=== PATIENT | female | born 1965 | race Caucasian/White ===

== ENCOUNTER 2018-09-13 08:35 | Emergency (ER) | payer SELFPAY ==
[~2018-09-13] VITALS: Ht 160 cm; Wt 96.4 kg
[2018-09-13] MEDS ORDERED: SYNT100T PO (08:43)
[2018-09-13] MEDS ORDERED: PROZ10CA7 PO (08:43)
[2018-09-13] MEDS ORDERED: LOVA20TA2 PO (08:43)
[2018-09-13] MEDS ORDERED: LISI10TA4 PO (08:43)
[2018-09-13] MEDS ORDERED: NS 500 ML IV ONE (09:15)
[2018-09-13] MEDS ORDERED: KETOROLAC 30 MG/ML VIAL (J1885) IV ONE (09:15)
[2018-09-13 09:28] LABS: BASO # 0.1 10^3/uL (0.0-0.2); BASO % 0.7 % (0.0-1.0); EOS # 0.1 10^3/uL (0.0-0.50); HEMATOCRIT 44.5 % (36.0-47.0); HEMOGLOBIN 14.8 g/dl (12.0-15.5); LYMPH # 1.7 10^3/uL (1.5-4.5); LYMPH % 20.2 % (24.0-44.0); MEAN CORPUSCULAR HEMOGLOBIN 29.1 pg (27.0-33.0); MEAN CORPUSCULAR HGB CONC 33.3 g/dl (32.0-36.5); MEAN CORPUSCULAR VOLUME 87.4 fl (80.0-96.0); MONO # 0.6 10^3/uL (0.0-0.8); MONO % 6.8 % (0.0-5.0); NEUTROPHILS % 70.8 % (36.0-66.0); PLATELET COUNT, AUTOMATED 277 10^3/uL (150-450); RED BLOOD COUNT 5.09 10^6/uL (4.00-5.40); WHITE BLOOD COUNT 8.4 10^3/uL (4.0-10.0)
--- NOTE | 2018-09-13 09:58 | REP ---
CT ABDOMEN AND PELVIS WITHOUT IV OR ORAL CONTRAST: HISTORY: Right flank pain. Rule out stone. Comparison CT study December 09, 2013. CT FINDINGS: Preliminary digital hand binder cutter radiograph demonstrates an unremarkable bowel gas pattern. The lung bases are clear on axial CT images. The liver and the spleen are normal in size homogeneous in texture. No focal hepatic lesion is seen. No adrenal lesion is observed on either side. The gallbladder and the pancreas are unremarkable. There is an accessory splenule at the tip of the pancreas. There are stable lymph nodes in the portacaval region of the upper abdomen unchanged. There is a cyst in the lower pole of the left kidney measuring 5.2 cm in greatest diameter. This is not new although it has enlarged in the interval since the prior study when it measured 3.6 cm. There is an intrarenal calculus 2-3 mm in diameter in the upper pole left kidney. No left ureteral stone is seen. There are multiple intrarenal calculi in the right kidney collecting system, the largest of which measures 4 mm in diameter. There are seven or eight right renal calculi seen. There is mild right-sided hydronephrosis. Right hydroureter is seen proximally. No ureteral calculus is seen. The distal right ureter is not dilated. No bladder calculus is visible. The uterus is surgically absent. There is left colonic diverticulosis without CT evidence of diverticulitis. There are scattered proximal colonic diverticula as well. The appendix is surgically absent. Urinary bladder is unremarkable. There is a small suprapubic ventral hernia transmitting abdominal fat. No significant bony abnormality. IMPRESSION: 1. Bilateral intrarenal nephrolithiasis, right more numerous than left. 2. Mild right-sided hydronephrosis. No ureteral calculus or other obstructive lesion seen. 3. 5.2 cm cyst lower pole left kidney. 4. Left and right colonic diverticulosis. 5. Post hysterectomy and appendectomy. Electronically Signed by Nixon Crawford MD 09/13/2018 11:13 A
[2018-09-13 11:24] LABS: ALBUMIN 3.6 GM/DL (3.2-5.2); ALT/SGPT 30 U/L (12-78); BILIRUBIN,DIRECT < 0.1 MG/DL (0.0-0.2); BILIRUBIN,TOTAL 0.5 MG/DL (0.2-1.0); BLOOD UREA NITROGEN 14 MG/DL (7-18); CALCIUM LEVEL 9.5 MG/DL (8.5-10.1); CARBON DIOXIDE LEVEL 20 MEQ/L (21-32); CHLORIDE LEVEL 105 MEQ/L (98-107); CREATININE FOR GFR 0.75 MG/DL (0.55-1.30); GLOMERULAR FILTRATION RATE > 60.0 (>51); GLUCOSE, FASTING 120 MG/DL (70-100); SODIUM LEVEL 137 MEQ/L (136-145); TOTAL PROTEIN 7.6 GM/DL (6.4-8.2)
[2018-09-13] MEDS ORDERED: KETO10TAB PO (12:08)
[2018-09-13] MEDS ORDERED: MACR100C43 PO (12:08)
[2018-09-13 12:14] VITALS: BP 120/76
== END 2018-09-13 12:16 | disposition home or self-care (01) ==
LOC: M ED 08:35
DX: N30.00 Acute cystitis without hematuria (principal); N20.0 Calculus of kidney; Z87.442 Personal history of urinary calculi; N13.30 Unspecified hydronephrosis; Z72.0 Tobacco use; Z79.899 Other long term (current) drug therapy; Z88.1 Allergy status to other antibiotic agents; Z88.2 Allergy status to sulfonamides
CPT/HCPCS: 36415; 74176; 80048; 80076; 81001; 85025; 96361; 96374; 99284; J1885

== ENCOUNTER 2020-01-07 17:37 | Emergency (ER) | payer OTHER, SELFPAY ==
[~2020-01-07] VITALS: Ht 160 cm; Wt 94.7 kg
[~2020-01-07 17:37] MED LIST: KETO10TAB PO; LISI10TA4 PO; LOVA20TA2 PO; MACR100C43 PO; PROZ10CA7 PO; SYNT100T PO
[2020-01-07] MEDS ORDERED: ONDA4TAB6 PO (19:51)
[2020-01-07] MEDS ORDERED: ONDANSETRON 4 MG ORAL DISINTEGRATING TAB PO ONE (20:00)
[2020-01-07] MEDS ORDERED: IBUPROFEN 800 MG TAB PO ONE (20:00)
[2020-01-07 20:25] VITALS: BP 129/73
== END 2020-01-07 20:30 | disposition home or self-care (01) ==
LOC: M ED 17:37
DX: R11.2 Nausea with vomiting, unspecified (principal); R19.7 Diarrhea, unspecified; E03.9 Hypothyroidism, unspecified; I10 Essential (primary) hypertension; F17.200 Nicotine dependence, unspecified, uncomplicated; Z79.899 Other long term (current) drug therapy; Z88.8 Allergy status to other drugs, medicaments and biological substances
CPT/HCPCS: 87486; 87581; 87633; 87798; 99283; Q0162

== ENCOUNTER → 2020-06-07 | Outpatient (CLI) | payer OTHER ==
[~2020-06-07] MED LIST changes: +ONDA4TAB6 PO
[2020-06-07 17:11] LABS: FREE T4 1.22 NG/DL (0.76-1.46); THYROID STIMULATING HORMONE 3.48 uIU/ML (0.358-3.740)
== END ==
LOC: M LAB 14:48
PROVIDERS: ATTEND Internal Medicine Gastroenterology
DX: K62.5 Hemorrhage of anus and rectum (principal)

== ENCOUNTER → 2020-06-08 | Outpatient (REF) | payer OTHER | LOC: M LAB REF 09:42 | PROVIDERS: ATTEND Internal Medicine Gastroenterology | DX: Z53.9 Procedure and treatment not carried out, unspecified reason (principal); K62.5 Hemorrhage of anus and rectum ==

== ENCOUNTER → 2020-06-12 | Outpatient (CLI) | payer OTHER ==
[~2020-06-12] MED LIST changes: +E-Z-PAQUE 96% w/w SUSP 176GM BTL As Ordered ONE
--- NOTE | 2020-06-12 21:04 | REP ---
INDICATION: DIARRHEA. COMPARISON: None. TECHNIQUE: The procedure was performed under the direct supervision of Dr. Crawford. The images were reviewed with Dr. Crawford. Liquid barium was administered and the barium column was followed through the small bowel to the level of the terminal ileum. FINDINGS: The mohs surgeon film shows no organomegaly or pathological masses. The intestinal gas pattern is nonspecific. Small bowel transit time is approximately 30 minutes. During fluoroscopy gentle palpation shows all loops are freely movable and pliable. There are no fixed or angulated loops. The small bowel mucosal pattern is normal in course and caliber. There is no transition to suggest a partial small bowel obstruction. Spot filming of the terminal ileum shows it to be unremarkable. 1 minute of fluoro time was utilized for this procedure. IMPRESSION: Small bowel follow-through examination within normal limits. <Electronically signed by Estevan Frank > 06/12/20 1712 <Electronically signed by Tyrone Crawford > 06/12/20 [id number]
== END ==
LOC: M RAD 08:41
PROVIDERS: ATTEND Internal Medicine Gastroenterology
DX: R19.7 Diarrhea, unspecified (principal)

== ENCOUNTER 2020-07-17 08:10 | Emergency (ER) | payer OTHER ==
[~2020-07-17] VITALS: Ht 160 cm; Wt 98.0 kg
[~2020-07-17 08:10] MED LIST changes: -E-Z-PAQUE 96% w/w SUSP 176GM BTL As Ordered ONE
[2020-07-17] MEDS ORDERED: NAPR220C14 PO (08:29)
[2020-07-17] MEDS ORDERED: LISI20TA35 PO (08:29)
[2020-07-17] MEDS ORDERED: ATOR1TAB19 PO (08:29)
--- NOTE | 2020-07-17 09:22 | REP ---
INDICATION: right posterior knee pain, no trauma COMPARISON: None. TECHNIQUE: Butler scale and color Doppler evaluation right lower extremity using linear high frequency transducer. FINDINGS: Ultrasound examination of the right lower extremity deep venous structures from the common femoral vein to the popliteal vein demonstrates normal compressibility flow and wave patterns in response to respiration and augmentation. There is no evidence for deep venous thrombosis. Complex fluid collection in the popliteal fossa consistent with Steen's cyst measuring roughly 5 x 0.9 x 3.6 cm IMPRESSION: No evidence for deep venous thrombosis. Steen's cyst in the popliteal fossa. <Electronically signed by Jeremiah Nye > 07/17/20 0918
[2020-07-17] MEDS ORDERED: IBUP-1022 PO (11:22)
[2020-07-17 11:27] VITALS: BP 131/83
== END 2020-07-17 11:34 | disposition home or self-care (01) ==
LOC: M ED 08:10
DX: M25.561 Pain in right knee (principal); I10 Essential (primary) hypertension; E78.5 Hyperlipidemia, unspecified; E07.9 Disorder of thyroid, unspecified; Z79.899 Other long term (current) drug therapy; Z79.890 Hormone replacement therapy; Z88.1 Allergy status to other antibiotic agents; F17.210 Nicotine dependence, cigarettes, uncomplicated

== ENCOUNTER → 2020-07-29 | Outpatient (CLI) | payer SELFPAY ==
[~2020-07-29] MED LIST changes: +ATOR1TAB19 PO; +FLUO40CA PO; +IBUP-1022 PO; +LEVO125T4 PO; +LISI10TA22 PO; -LISI10TA4 PO; +LISI20TA35 PO; +NAPR220C14 PO; +SYNT75TA PO
== END ==
LOC: M LABSMTC 13:52
PROVIDERS: ATTEND Pediatrics
DX: Z20.822 Contact with and (suspected) exposure to COVID-19 (principal)

== ENCOUNTER → 2020-12-15 | Outpatient (CLI) | payer OTHER | LOC: M LABSMTC 09:11 | PROVIDERS: ATTEND Anesthesiology | DX: Z20.828 Contact with and (suspected) exposure to other viral communicable diseases (principal); Z11.59 Encounter for screening for other viral diseases ==

== ENCOUNTER 2020-12-20 10:41 | Day surgery (SDC) | payer OTHER ==
[~2020-12-20] VITALS: Ht 157.5 cm; Wt 95.3 kg
[~2020-12-20 10:41] MED LIST changes: +NS 1,000 ML IV ONE
[2020-12-20] MEDS ORDERED: LIDOCAINE 2% 100MG/5ML SDV (FOR ANES.) As Ordered ONE (12:11)
[2020-12-20] MEDS ORDERED: propofoL 200 MG/20 ML VIAL As Ordered ONE ×3 (12:11→12:42)
--- NOTE | 2020-12-20 13:11 | ROOR ---
Patient Name: Charlotte Swan Procedure Date: 12/20/2020 12:14 PM Date of : 1965 Age: 55 Room: [facility] Gender: Female Note Status: Finalized Procedure: Colonoscopy Indications: Clinically significant diarrhea of unexplained origin, Hematochezia Providers: Ehsan Evangelista MD Referring MD: AIDA ESTEVEZ Requesting Provider: Medicines: Monitored Anesthesia Care Complications: No immediate complications. Procedure: Pre-Anesthesia Assessment: - The heart rate, respiratory rate, oxygen saturations, blood pressure, adequacy of pulmonary ventilation, and response to care were monitored throughout the procedure. The Colonoscope was introduced through the anus and advanced to the cecum, identified by appendiceal orifice and ileocecal valve. The colonoscopy was somewhat difficult due to multiple diverticula in the colon. The patient tolerated the procedure well. The quality of the bowel preparation was adequate. Findings: The perianal and digital rectal examinations were normal. Multiple small and large-mouthed diverticula were found in the recto-sigmoid colon and sigmoid colon. There was narrowing of the colon in association with the diverticular opening. There was evidence of diverticular spasm. Three 10 mm polypoid lesion was found in the recto-sigmoid colon and in the distal sigmoid colon. The lesion was semi-sessile. This was biopsied with a cold forceps for histology. Two 7 mm polyp was found in the recto-sigmoid colon distal sigmoid colon. The polyp was semi-pedunculated. The polyps were removed with a hot snare. Resection and retrieval were complete. Two semi-sessile polyps were found in the proximal sigmoid colon. The polyps were 5 to 8 mm in size. These polyps were removed with a hot snare. Resection and retrieval were complete. Two semi-sessile polyps were found in the transverse colon. The polyps were 6 to 8 mm in size. These polyps were removed with a hot snare. Resection and retrieval were complete. Two sessile polyps were found in the ascending colon. The polyps were 6 to 8 mm in size. These polyps were removed with a hot snare. Resection and retrieval were complete. Impression: - Severe diverticulosis/myomatous hypertrophy in the recto-sigmoid colon and in the sigmoid colon. There was narrowing of the colon in association with the diverticular opening. There was evidence of diverticular spasm. - Three likely benign erythematous polypoid lesions in the recto-sigmoid colon and in the distal sigmoid colon (within the segment of diverticulosis/spasm. Biopsied. - Two 7 mm polyp at the recto-sigmoid colon in the distal sigmoid colon, removed with a hot snare. Resected and retrieved. - Two 5 to 8 mm polyps in the proximal sigmoid colon, removed with a hot snare. Resected and retrieved. Clip placed. - Two 6 to 8 mm polyps in the transverse colon, removed with a hot snare. Resected and retrieved. - Two 6 to 8 mm polyps in the ascending colon, removed with a hot snare. Resected and retrieved. - Small internal hemorrhoids. Recommendation: For Diverticulosis spasm/narrowing use daily combination of: - A fiber supplement( for example Citrucel, Fibercon, Konsyl or Metamucil.) PLUS - Miralax 1 capful (17 grams) in 8 ounces of water PO daily. - Telephone endoscopist for pathology results in 2 weeks. Procedure Code(s): --- Professional --- 43175, Colonoscopy, flexible; with removal of tumor(s), polyp(s), or other lesion(s) by snare technique [id number], 59, Colonoscopy, flexible; with biopsy, single or multiple Diagnosis Code(s): --- Professional --- K57.30, Diverticulosis of large intestine without perforation or abscess without bleeding K92.1, Melena (includes Hematochezia) R19.7, Diarrhea, unspecified K63.5, Polyp of colon D49.0, Neoplasm of unspecified behavior of digestive system CPT copyright 2019 [employer]. All rights reserved. The codes documented in this report are preliminary and upon wharf tally clerk review may be revised to meet current compliance requirements. Ehsan Evangelista MD Ehsan Evangelista MD 12/20/2020 1:10:47 PM Electronically signed by Ehsan Evangelista MD Number of Addenda: 0 Note Initiated On: 12/20/2020 12:14 PM Estimated Blood Loss: Estimated blood loss: none.
[2020-12-20 13:16] VITALS: BP 99/54
== END 2020-12-20 14:16 | disposition home or self-care (01) ==
LOC: M OPP 10:41
PROVIDERS: ATTEND Internal Medicine Gastroenterology
DX: K57.30 Diverticulosis of large intestine without perforation or abscess without bleeding (principal); K92.1 Melena; K63.5 Polyp of colon; D49.0 Neoplasm of unspecified behavior of digestive system; R19.7 Diarrhea, unspecified; Z79.899 Other long term (current) drug therapy; Z88.1 Allergy status to other antibiotic agents; Z91.041 Radiographic dye allergy status

== ENCOUNTER 2021-05-08 03:01 | Emergency (ER) | payer OTHER ==
[~2021-05-08] VITALS: Ht 160 cm; Wt 93.2 kg
[~2021-05-08 03:01] MED LIST changes: -NS 1,000 ML IV ONE
--- OUTSIDE RECORDS SUMMARY | 2021-05-08 03:06 | CCD | Continuity of Care Document ---
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 ETOH Use Occasionally consumes beer Tobacco Use Start: Unknown Patient is a current smoker, smo kes every day Seat Belt/Car Seat always Allergies, Adverse Reactions, Alerts Active Allergies Criticality Reaction | Severity Comments Date Keflex Unable to assess criticality edema 09/22/2002 Cipro Unable to assess criticality RASH, DIFFICULT BREATHING ,SWELLING 08/03/2012 Medications Active Medications SIG Qnty Indications Ordering Provide r Date Atorvastatin Calcium 10mg Tablets 1 by mouth every day 90tabs Gerardo Nuñez D.O., FAAFP 10/2018 Lisinopril-Hydrochlorothiazide 20-12.5mg Tablets 1 by mouth every day 90tabs Tamica Almodovar, FAAFP 02/12/2017 Cyclobenzaprine HCL 10mg Tablets take one tablet by mouth three times a day. do not take if driving or operating equipment 30tabs Gerardo Nuñez D.O., FAAFP 04/2017 Levothyroxine Sodium 125mcg Tablet s 1 by mouth every day 90tabs Gerardo Nuñez D.O., FAAFP Epipen 2-Gonzalo 0.3mg/0.3ML Soaj use as directed 1Set iLbia Strauss, BEDSPREAD INSPECTOR-C 0 02/02/2014 Medications Administered in Office Medication SIG Qnty Indications Ordering Provider Date Injection (SC)/(Im) Injection Kp Lovett, RPA 07/26/2015 Injection (SC)/(Im) Injection Kp Lovett, RPA 07/25/2015 Injection (SC)/(Im) Injection Kp Lovett, RPA 07/24/2015 Immunizations CPT Code Status Date Vaccine Reaction Lot # [id number] Refused 05/29/2015 Influenza Virus Vac. Split Virus Individuals 3 Years And Above Received a shot at work 04/25. Vital Signs Date Vital Result Comment 03/10/2021 3:55pm BP Systolic 128 mmHg BP Diastolic 84 mmHg Body Temperature 98.0 F Heart Rate 76 /min Respiratory Rate 16 /min Height 62 inches 5'2" Weight 218.00 lb [place] Body Weight 110 lb BMI (Body Mass Index) 39.9 kg/m2 O2 % BldC Oximetry 97 % 09/26/2020 3:22pm BP Systolic 114 mmHg BP Diastolic 84 mmHg Body Temperature 96.5 F Heart Rate 60 /min Respiratory Rate 16 /min Height 62 inches 5'2" Weight 219.00 lb [place] Body Weight 110 lb BMI (Body Mass Index) 40.1 kg/m2 O2 % BldC Oximetry 98 % Results Test Acquired Date Facility Test Result H/L Range Note Laboratory test finding 10/24/2020 [place] [address] [phone] Lactic Acid (Lactate) 1.8 mmol/L 0.2 - 2.2 Comprehensive Metabolic Panel 10/24/2020 [place] [address] [phone] Comprehensive Metabo (SEE NOTE) 1 Sodium 135 mEq/L 134 - 153 Potassium 3.6 mEq/L 3.6 - 5.0 Chloride 102 mEq/L 98 - 107 Co2 25 mEq/L 22 - 30 Glucose 170 mg/dL High 70 - 99 BUN 15 mg/dL 7 - 21 Creatinine 0.6 mg/dL Low 0.7 - 1.5 BUN/Creat 25 8 - 27 Total Protein 6.9 g/dL 6.3 - 8.2 Albumin 4.0 g/dL 3.9 - 5.0 Globulin 2.9 GM/DL 2.4 - 3.2 A/G Ratio 1.4 0.8 - 2.0 Calcium 9.4 mg/dL 8.4 - 10.2 Total Bili <0.7 mg/dL 0.2 - 1.3 Alkaline Phos 94 U/L 38 - 126 Sgot/Ast 15 U/L 5 - 40 SGPT/Alt 23 U/L 7 - 56 Anion Gap 8.0 mmol/L 8.0 - 16.0 Age 55 yrs Non-Aa GFR >60 mL/min Afr Amer GFR >60 mL/min 2 CBC W/Automated Diff 10/24/2020 [facility] [place] [address] [phone] CBC W/Automated Diff (SEE NOTE) 3 WBC 7.4 10^3/uL 4.2 - 11.0 RBC 4.62 10^6/uL 4.20 - 5.40 Hemoglobin 13.8 g/dL 12.0 - 16.0 Hematocrit 40.8 % 37.0 - 47.0 MCV 88.3 fL 81.0 - 101 MCH 29.9 pg 27.0 - 34.0 MCHC 33.8 g/dL 31.0 - 36.0 RDW 12.4 % 11.5 - 14.5 Platelets 255 10^3/uL 150 - 450 MPV 9.9 fL 7.4 - 10.4 Neut 68.0 % 37.0 - 80.0 Lymph 22.0 % Low 25.0 - 40.0 [place] 7.2 % 3.0 - 8.0 Eos 1.8 % 0.0 - 7.0 Baso 0.7 % 0.0 - 2.5 %Ig 0.3 % High 0.0 - 0.0 %NRBC 0.0 % 0.0 - 0.0 #Neut 5.04 10^3/uL 2.00 - 6.90 #Lymph 1.63 10^3/uL 0.60 - 3.40 #[place] 0.53 10^3/uL 0.00 - 0.90 #Eos 0.13 10^3/uL 0.00 - 0.70 #Baso 0.05 10^3/uL 0.00 - 0.20 #Ig 0.02 10^3/uL 0.00 - 0.10 #NRBC 0.00 10^3/uL 0.00 - 0.00 Manual Diff NOT INDICATED RBC Morph NOT INDICATED Urinalysis 10/24/2020 [place] [address] [phone] Urinalysis (SEE NOTE) 4, 5 Source R Color yellow Normal: Yellow Clarity clear Normal: Clear Spec [place] 1.015 1.001 - 1.030 pH 6 5 - 9 Glucose NORM Normal: Negative Bilirubin NEG Normal: Negative Ketone NEG Normal: Negative Protein 15 Normal: Negative Nitrite NEG Normal: Negative Blood 50 Abnormal Normal: Negative Leuk Est NEG Normal: Negative Urobilinogen NOR less than 1.0 mg/dL Microscopic See Below WBC 0 - 1 Normal: None Seen RBC 0 - 1 Normal: None Seen Epithelial MODERATE Abnormal Normal: None Seen Bacteria Trace Normal: None Seen Amorph Sed RARE Normal: None Seen 1 COMPREHENSIVE METABOLIC PANE L 2 Male GFR Interprentation 20-49 yrs >60 mL/min Normal 50-59 yrs >56 mL/min Normal 60-69 yrs >49 mL/min Normal 70-79yrs >42 mL/min Normal 80 and above >35 mL/min Normal Female GFR Interpretation 20-39 yrs >60 mL/min Normal 40-49 yrs >58 mL/min Normal 50-59 yrs >51 mL/min Normal 60-69 yrs >45 mL/min Normal 70-79 yrs >39 mL/min Normal 80 and above >32 mL/min Normal 3 COMPLETE BLOOD COUNT 4 SOURCE: Clean Catch 5 URINALYSIS Procedures Date Code Description Status 03/10/2021 15993 Office/Outpatient Established Mo d MDM 30-39 Min Completed 09/26/2020 49750 Office/Outpatient Established Mo d MDM 30-39 Min Completed Medical Devices Description No Information Available Encounters Type Date Location Provider Dx Diagnosis Office Visit 03/10/2021 4:00p [facility] Kp Lovett, RP A I10 Essential (primary) hypertension E78.5 Hyperlipidemia, unspecified E03.9 Hypothyroidism, unspecified Office Visit 09/26/2020 3:15p [facility] Kp Lovett, RP A Z01.818 Encounter for other preprocedural examination M25.562 Pain in left knee I10 Essential (primary) hyperten elsa E78.5 Hyperlipidemia, unspecified E03.9 Hypothyroidism, unspecified N20.0 Calculus of kidney R31.9 Hematuria, unspecified F17.210 Nicotine dependence, cigaret nicole, uncomplicated Assessments Date Code Description Provider 03/10/2021 I10 Essential (primary) hypertension Kp Lovett, RPA 03/10/2021 E78.5 Hyperlipidemia, unspecified Kp Haque, RPA 03/10/2021 E03.9 Hypothyroidism, unspecified Kp Haque, RPA 09/26/2020 Z01.818 Encounter for other preprocedura l examination Kp Lovett, RPA 09/26/2020 M25.562 Pain in left knee Adonay Lovett, RPA 09/26/2020 I10 Essential (primary) hypertension Kp Lovett, RPA 09/26/2020 E78.5 Hyperlipidemia, unspecified Kp Haque, RPA 09/26/2020 E03.9 Hypothyroidism, unspecified Kp Haque, RPA 09/26/2020 N20.0 Calculus of kidney Mario Lovett, RPA 09/26/2020 R31.9 Hematuria, unspecified Nelsy Lovett D, RPA 09/26/2020 F17.210 Nicotine dependence, cigarettes, uncomplicated Kp Lovett, RPA Plan of Treatment No Information Available Functional Status Description No Information Available Mental Status Description No Information Available Referrals Description No Information Available
--- OUTSIDE RECORDS SUMMARY | 2021-05-08 03:06 | CCD | Continuity of Care Document ---
Author Author Charlotte LOVETT RPA Organization Unknown Address [address] [facility] [address] [place] [address] Phone [phone] Problems Active Problems Provider Date Hypothyroidism Kp Lovett RPA Onset: 12/21/2007 Hyperlipidemia Kp Lovett RPA Onset: 08/31/2008 Tobacco user Kp Lovett RPA Onset: 08/31/2008 Headache Kp Lovett RPA Onset: 08/31/2008 Diverticular disease of colon Kp Lovett RPA Onset: 12/11/2013 Note: Hx diverticulitis 12/09/13 Diverticulitis of sigmoid colon Kp Lovett RPA Onset : 03/09/2014 Note: 12/09/13 [facility] ER dx by CT Hematuria syndrome [...] 2-Gonzalo 0.3mg/0.3ML Soaj use as directed 1Set Libia Strauss, ADJUNCT INSTRUCTOR IN ECONOMICS-C 0 02/02/2014 Medications Administered in Office Medication SIG Qnty Indications Ordering Provider Date Injection (SC)/(Im) Injection Kp Lovett, RPA 07/26/2015 Injection (SC)/(Im) Injection Kp Lovett, RPA 07/25/2015 Injection (SC)/(Im) Injection Kp Lovett, RPA 07/24/2015 Immunizations CPT Code Status Date Vaccine Reaction Lot # [id number] Refused 05/29/2015 Influenza Virus Vac. Split Virus Individuals 3 Years And Above Received a shot at work 04/25. Vital Signs Date Vital Result Comment 03/10/2021 3:55pm BP Systolic 128 mmHg BP Diastolic 84 mmHg Body Temperature 98.0 F Heart Rate 76 /min Respiratory Rate 16 /min Height 62 inches 5'2" Weight 218.00 lb [place] Body Weight 110 lb BMI (Body Mass Index) 39.9 kg/m2 O2 % BldC Oximetry 97 % 09/26/2020 3:22pm BP Systolic 114 mmHg BP Diastolic 84 mmHg Body Temperature 96.5 F Heart Rate 60 /min Respiratory Rate 16 /min Height 62 inches 5'2" Weight 219.00 lb [place] Body Weight 110 lb BMI (Body Mass Index) 40.1 kg/m2 O2 % BldC Oximetry 98 % Results Test Acquired Date Facility Test Result H/L Range Note Laboratory test finding 10/24/2020 [place] [address] [phone] Lactic Acid (Lactate) 1.8 mmol/L 0.2 - 2.2 Comprehensive Metabolic Panel 10/24/2020 [place] [address] [phone] Comprehensive Metabo (SEE NOTE) 1 Sodium 135 [...] >60 mL/min 2 CBC W/Automated Diff 10/24/2020 [facility] [place] [address] [phone] CBC W/Automated Diff (SEE NOTE) 3 WBC [...] Lymph 22.0 % Low 25.0 - 40.0 [place] 7.2 % 3.0 - 8.0 Eos 1.8 % 0.0 - 7.0 Baso 0.7 % 0.0 - 2.5 %Ig 0.3 % High 0.0 - 0.0 %NRBC 0.0 % 0.0 - 0.0 #Neut 5.04 10^3/uL 2.00 - 6.90 #Lymph 1.63 10^3/uL 0.60 - 3.40 #[place] 0.53 10^3/uL 0.00 - 0.90 #Eos 0.13 10^3/uL 0.00 - 0.70 #Baso 0.05 10^3/uL 0.00 - 0.20 #Ig 0.02 10^3/uL 0.00 - 0.10 #NRBC 0.00 10^3/uL 0.00 - 0.00 Manual Diff NOT INDICATED RBC Morph NOT INDICATED Urinalysis 10/24/2020 [place] [address] [phone] Urinalysis (SEE NOTE) 4, 5 Source R Color yellow Normal: Yellow Clarity clear Normal: Clear Spec [place] 1.015 1.001 - 1.030 pH 6 5 [...] URINALYSIS Procedures Date Code Description Status 03/10/2021 52329 Office/Outpatient Established Mo d MDM 30-39 Min Completed 09/26/2020 73399 Office/Outpatient Established Mo d MDM 30-39 Min Completed Medical Devices Description No Information Available Encounters Type Date Location Provider Dx Diagnosis Office Visit 03/10/2021 4:00p [facility] Kp Lovett, RP A I10 Essential (primary) hypertension E78.5 Hyperlipidemia, unspecified E03.9 Hypothyroidism, unspecified Office Visit 09/26/2020 3:15p [facility] Kp Lvoett, RP A Z01.818 Encounter for other preprocedural [...]
--- OUTSIDE RECORDS SUMMARY | 2021-05-08 03:07 | CCD ---
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 Name Role Phone SKIP, MARIETTA FARIA Unavailable Unavailable REINANA, MARIETTA FARIA Unavailable Unavailable REINANA, MARIETTA FARIA Unavailable Unavailable REINDL, MARIETTA FARIA Unavailable Unavailable REINDL, MARIETTA FARIA Unavailable Unavailable REINANA, MARIETTA FARIA Unavailable Unavailable REINDL, MARIETTA FARIA Unavailable Unavailable REINDL, MARIETTA FARIA Unavailable Unavailable REINDL, MARIETTA FARIA Unavailable Unavailable REINDL, MARIETTA FARIA Unavailable Unavailable REINDL, MARIETTA FARIA Unavailable Unavailable REINDL, MARIETTA FARIA Unavailable Unavailable REINDL, MARIETTA FARIA Unavailable Unavailable REINDL, MARIETTA FARIA Unavailable Unavailable REINDL, MARIETTA FARIA Unavailable Unavailable REINANA, MARIETTA FARIA Unavailable Unavailable REINDL, MARIETTA FARIA Unavailable Unavailable REINANA, MARIETTA FARIA Unavailable Unavailable REINDL, MARIETTA FARIA Unavailable Unavailable REINDL, MARIETTA FARIA Unavailable Unavailable REINDL, MARIETTA FARIA Unavailable Unavailable REINDL, MARIETTA FARIA Unavailable Unavailable REINDL, MARIETTA FARIA Unavailable Unavailable REINANA, MARIETTA FARIA Unavailable Unavailable REINDL, MARIETTA FARIA Unavailable Unavailable REINDL, MARIETTA FARIA Unavailable Unavailable REINDL, MARIETTA FARIA Unavailable Unavailable REINDL, MARIETTA FARIA Unavailable Unavailable REINDL, MARIETTA FARIA Unavailable Unavailable REINDL, MARIETTA FARIA Unavailable Unavailable REINDL, MARIETTA FARIA Unavailable Unavailable REINDL, MARIETTA FARIA Unavailable Unavailable REINANA, MARIETTA FARIA Unavailable Unavailable SKIP, MARIETTA FARIA Unavailable Unavailable REINANA, MARIETTA FARIA Unavailable Unavailable REINDL, MARIETTA FARIA Unavailable Unavailable REINANA, MARIETTA FARIA Unavailable Unavailable REINANA, MARIETTA FARIA Unavailable Unavailable REINANA, MARIETTA FARIA Unavailable Unavailable SKIP, MARIETTA FARIA Unavailable Unavailable SKIP, MARIETTA FARIA Unavailable Unavailable REINANA, MARIETTA FARIA Unavailable Unavailable EAMON CHAVEZ Unavailable Unavailable MCELHERAN, EAMON PA Unavailable Unavailable MCELHERAN, EAMON PA Unavailable Unavailable MCELHERAN, EAMON PA Unavailable Unavailable MCELHERAN, EAMON PA Unavailable Unavailable MCELHERAN, EAMON PA Unavailable Unavailable MCELHERAN, EAMON PA Unavailable Unavailable MCELHERAN, EAMON PA Unavailable Unavailable MCELHERAN, EAMON PA Unavailable Unavailable MCELHERAN, EAMON PA Unavailable Unavailable MCELHERAN, EAMON PA Unavailable Unavailable MCELHERAN, EAMON PA Unavailable Unavailable MCELHERAN, EAMON PA Unavailable Unavailable MCELHERAN, EAMON PA Unavailable Unavailable MCELHERAN, EAMON PA Unavailable Unavailable MCELHERAN, EAMON PA Unavailable Unavailable MCELHERAN, EAMON PA Unavailable Unavailable MCELHERAN, EAMON PA Unavailable Unavailable MCELHERAN, EAMON PA Unavailable Unavailable MCELHERAN, EAMON PA Unavailable Unavailable MCELHERAN, EAMON PA Unavailable Unavailable MCELHERAN, EAMON PA Unavailable Unavailable MCELHERAN, EAMON PA Unavailable Unavailable MCELHERAN, EAMON PA Unavailable Unavailable MCELHERAN, EAMON PA Unavailable Unavailable MCELHERAN, EAMON PA Unavailable Unavailable MCELHERAN, EAMON PA Unavailable Unavailable MCELHERAN, EAMON PA Unavailable Unavailable MCELHERAN, EAMON PA Unavailable Unavailable Barraclough, M Felicity PA Unavailable Unavailable Barraclough, M Felicity PA Unavailable Unavailable Barraclough, M Felicity PA Unavailable Unavailable Barraclough, M Felicity PA Unavailable Unavailable Barraclough, M Felicity PA Unavailable Unavailable Barraclough, M Felicity PA Unavailable Unavailable Barraclough, M Felicity PA Unavailable Unavailable Bony, D Eamon PA Unavailable Unavailable Bony, D Eamon PA Unavailable Unavailable Bony, Papito Eamon PA Unavailable Unavailable Bony, Papito Eamon PA Unavailable Unavailable Bony, D Eamon PA Unavailable Unavailable Bony, D Eamon PA Unavailable Unavailable Bony, D Eamon PA Unavailable Unavailable Bony, D Eamon PA Unavailable Unavailable Bony, D Eamon PA Unavailable Unavailable Bony, D Eamon PA Unavailable Unavailable Bony, D Eamon PA Unavailable Unavailable Bony, D Eamon PA Unavailable Unavailable Bony, D Eamon PA Unavailable Unavailable Bony, D Eamon PA Unavailable Unavailable Bony, D Eamon PA Unavailable Unavailable Bony, Papito Eamon PA Unavailable Unavailable Bony, Papito Eamon PA Unavailable Unavailable Bony, Papito Goodrich PA Unavailable Unavailable Bony, Papito Eamon PA Unavailable Unavailable Bony, D Eamon PA Unavailable Unavailable Bony, D Eamon PA Unavailable Unavailable Bony, D Eamon PA Unavailable Unavailable Bony, D Eamon PA Unavailable Unavailable Bony, D Eamon PA Unavailable Unavailable Bony, D Eamon PA Unavailable Unavailable Bony, D Eamon PA Unavailable Unavailable Bony, D Eamon PA Unavailable Unavailable Bony, D Eamon PA Unavailable Unavailable Bony, D Eamon PA Unavailable Unavailable Bony, D Eamon PA Unavailable Unavailable Bony, D Eamon PA Unavailable Unavailable Bony, D Eamon PA Unavailable Unavailable Bony, D Eamon PA Unavailable Unavailable Bony, D Eamon PA Unavailable Unavailable Bony, D Eamon PA Unavailable Unavailable Bony, D Eamon PA Unavailable Unavailable Bony, D Eamon PA Unavailable Unavailable Bony, D Eamon PA Unavailable Unavailable Bony, D Eamon PA Unavailable Unavailable Bony, D Eamon PA Unavailable Unavailable Bony, D Eamon PA Unavailable Unavailable Bony, D Eamon PA Unavailable Unavailable Bony, D Eamon PA Unavailable Unavailable Bony, D Eamon PA Unavailable Unavailable Bony, D Eamon PA Unavailable Unavailable Bony, D Eamon PA Unavailable Unavailable Bony, D Eamon PA Unavailable Unavailable Bony, D Eamon PA Unavailable Unavailable Bony, D Eamon PA Unavailable Unavailable Bony, D Eamon PA Unavailable Unavailable Bony, D Eamon PA Unavailable Unavailable Bony, D Eamon PA Unavailable Unavailable Bony, D Eamon PA Unavailable Unavailable Bony, D Eamon PA Unavailable Unavailable Bony, D Eamon PA Unavailable Unavailable Bony, D Eamon PA Unavailable Unavailable Bony, D Eamon PA Unavailable Unavailable Bony, D Eamon PA Unavailable Unavailable Bony, D Eamon PA Unavailable Unavailable Bony, D Eamon PA Unavailable Unavailable Bony, D Eamon PA Unavailable Unavailable Bony, D Eamon PA Unavailable Unavailable Bony, D Eamon PA Unavailable Unavailable Bony, D Eamon PA Unavailable Unavailable Bony, D Eamon PA Unavailable Unavailable Bony, D Eamon PA Unavailable Unavailable Bony, D Eamon PA Unavailable Unavailable Bony, D Eamon PA Unavailable Unavailable Bony, D Eamon PA Unavailable Unavailable Bony, D Eamon PA Unavailable Unavailable Bony, D Eamon PA Unavailable Unavailable Bony, D Eamon PA Unavailable Unavailable Bony, D Eamon PA Unavailable Unavailable Bony, D Eamon PA Unavailable Unavailable Bony, D Eamon PA Unavailable Unavailable Bony, D Eamon PA Unavailable Unavailable Bony, D Eamon PA Unavailable Unavailable Bony, D Eamon PA Unavailable Unavailable Bony, D Eamon PA Unavailable Unavailable Bony, D Eamon PA Unavailable Unavailable Bony, D Eamon PA Unavailable Unavailable Bony, D Eamon PA Unavailable Unavailable Bony, D Eamon PA Unavailable Unavailable Bony, D Eamon PA Unavailable Unavailable Bony, D Eamon PA Unavailable Unavailable Bony, D Eamon PA Unavailable Unavailable Bony, D Eamon PA Unavailable Unavailable Bony, D Eamon PA Unavailable Unavailable Bony, D Eamon PA Unavailable Unavailable Bony, D Eamon PA Unavailable Unavailable Bony, D Eamon PA Unavailable Unavailable Bony, D Eamon PA Unavailable Unavailable Bony, D Eamon PA Unavailable Unavailable Bony, D Eamon PA Unavailable Unavailable Bony, D Eamon PA Unavailable Unavailable Bony, D Eamon PA Unavailable Unavailable Bony, D Eamon PA Unavailable Unavailable Bony, D Eamon PA Unavailable Unavailable Bony, D Eamon PA Unavailable Unavailable Bony, D Eamon PA Unavailable Unavailable Bony, D Eamon PA Unavailable Unavailable Bony, D Eamon PA Unavailable Unavailable Bony, D Eamon PA Unavailable Unavailable Bony, D Eamon PA Unavailable Unavailable Bony, D Eamon PA Unavailable Unavailable Bony, D Eamon PA Unavailable Unavailable Bony, D Eamon PA Unavailable Unavailable Bony, D Eamon PA Unavailable Unavailable Bony, D Eamon PA Unavailable Unavailable Boyn, D Eamon PA Unavailable Unavailable Bony, D Eamon PA Unavailable Unavailable Bony, D Eamon PA Unavailable Unavailable Bony, D Eamon PA Unavailable Unavailable Bony, D Eamon PA Unavailable Unavailable Bony, D Eamon PA Unavailable Unavailable Bony, D Eamon PA Unavailable Unavailable Bony, D Eamon PA Unavailable Unavailable Bony, D Eamon PA Unavailable Unavailable Bony, D Eamon PA Unavailable Unavailable Bony, D Eamon PA Unavailable Unavailable Bony, D Eamon PA Unavailable Unavailable Bony, D Eamon PA Unavailable Unavailable Bony, D Eamon PA Unavailable Unavailable Bony, D Eamon PA Unavailable Unavailable Bony, D Eamon PA Unavailable Unavailable Bony, D Eamon PA Unavailable Unavailable Bony, D Eamon PA Unavailable Unavailable Bony, D Eamon PA Unavailable Unavailable Bony, D Eamon PA Unavailable Unavailable Bony, D Eamon PA Unavailable Unavailable Bony, D Eamon PA Unavailable Unavailable BonyPapito Unavailable Unavailable BonyPapito Unavailable Unavailable BonyPapito truong Unavailable Unavailable VaneendanishamPapito MD Unavailable Unavailable Vaneenenaam, Papito Pollock MD Unavailable Unavailable VaneenenaamPapito MD Unavailable Unavailable Vaneenenaam, Papito Pollock MD Unavailable Unavailable VaneenenaamPapito MD Unavailable Unavailable Vaneenenaam, Papito Pollock MD Unavailable Unavailable VaneenenaamPapito MD Unavailable Unavailable Vaneenenaam, Papito Pollock MD Unavailable Unavailable Vaneenenaam, Papito Pollock MD Unavailable Unavailable Vaneenenaam, Papito Pollock MD Unavailable Unavailable Vaneenenaam, Papito Pollock MD Unavailable Unavailable Vaneenenaam, Papito Pollock MD Unavailable Unavailable Vaneenenaam, Papito Pollock MD Unavailable Unavailable Vaneenenaam, Papito Pollock MD Unavailable Unavailable Vaneenenaam, Papito Pollock MD Unavailable Unavailable Vaneenenaam, Papito Pollock MD Unavailable Unavailable Vaneendanisham, Papito Pollock MD Unavailable Unavailable Vandimitri, Papito Pollock MD Unavailable Unavailable Vanloisam, Papito Pollock MD Unavailable Unavailable Vaneendanisham, Papito Pollock MD Unavailable Unavailable Vaneendanisham, Papito Pollock MD Unavailable Unavailable Vaneenenaam, Papito Pollock MD Unavailable Unavailable VaneenenaamPapito MD Unavailable Unavailable Vandimitri, Papito Pollock MD Unavailable Unavailable VanPapito mosley MD Unavailable Unavailable VanloisamPapito MD Unavailable Unavailable Vanloisam, Papito Pollock MD Unavailable Unavailable Vaneenenaam, Papito Pollock MD Unavailable Unavailable VaneendanishamPapito MD Unavailable Unavailable VanPapito mosley MD Unavailable Unavailable VanloisamPapito MD Unavailable Unavailable VanloisamPapito MD Unavailable Unavailable VaneendanishamPapito MD Unavailable Unavailable VanloisamPapito MD Unavailable Unavailable VanPapito mosley MD Unavailable Unavailable VanPapito mosley MD Unavailable Unavailable VanPapito mosley MD Unavailable Unavailable VanPapito mosley MD Unavailable Unavailable VanloisamPapito MD Unavailable Unavailable VanloisamPapito MD Unavailable Unavailable VanloisamPapito MD Unavailable Unavailable VanloisamPapito MD Unavailable Unavailable VanPapito mosley MD Unavailable Unavailable VanPapito mosley MD Unavailable Unavailable VanloisamPapito MD Unavailable Unavailable VanloisamPapito MD Unavailable Unavailable Johnson THRASHER MD Unavailable Unavailable PRICE, L DYLAN MD Unavailable Unavailable PRICE, L DYLAN MD Unavailable Unavailable PRICE, L DYLAN MD Unavailable Unavailable PRICE, L DYLAN MD Unavailable Unavailable PRICE, L DYLAN MD Unavailable Unavailable PRICE, L DYLAN MD Unavailable Unavailable PRICE, L DYLAN MD Unavailable Unavailable PRICE, L DYLAN MD Unavailable Unavailable PRICE, L DYLAN MD Unavailable Unavailable PRICE, L DYLAN MD Unavailable Unavailable PRICE, L DYLAN MD Unavailable Unavailable PRICE, L DYLAN MD Unavailable Unavailable PRICE, L DYLAN MD Unavailable Unavailable PRICE, L DYLAN MD Unavailable Unavailable PRICE, L DYLAN MD Unavailable Unavailable PRICE, L DYLAN MD Unavailable Unavailable PRICE, L DYLAN MD Unavailable Unavailable PRICE, L DYLAN MD Unavailable Unavailable PRICE, L DYLAN MD Unavailable Unavailable Re-disclosure Warning The records that you are about to access may contain information from federally-assisted alcohol or drug abuse programs. If such information is present, then the following federally mandated warning applies: This information has been disclosed to you from records protected by federal confidentiality rules (42 CFR part 2). The federal rules prohibit you from making any further disclosure of this information unless further disclosure is expressly permitted by the written consent of the person to whom it pertains or as otherwise permitted by 42 CFR part 2. A general authorization for the release of medical or other information is NOT sufficient for this purpose. The Federal rules restrict any use of the information to criminally investigate or prosecute any alcohol or drug abuse patient.The records that you are about to access may contain highly sensitive health information, the redisclosure of which is protected by Article 27-F of the [facility] Public Health law. If you continue you may have access to information: Regarding HIV / AIDS; Provided by facilities licensed or operated by the [facility] Office of Mental Health; or Provided by the [facility] Office for People With Developmental Disabilities. If such information is present, then the following [facility] mandated warning applies: This information has been disclosed to you from confidential records which are protected by state law. State law prohibits you from making any further disclosure of this information without the specific written consent of the person to whom it pertains, or as otherwise permitted by law. Any unauthorized further disclosure in violation of state law may result in a fine or custodial sentence or both. A general authorization for the release of medical or other information is NOT sufficient authorization for further disc losure. Family History Family Member Name Family Member Gender Family Member Status Date o f Status Description Data Source(s) Unknown Female Problem [facility] ([facility]) Unknown Female Problem [facility] ([facility]) Encounters Encounter Providers Location Date Indications Data Source(s ) Outpatient Attender: Eamon PARRA [place] Office 04:00:00 PM EDT [facility] ([facility] Emergency Attender: DYLAN THRASHER MDConsultant: Eamon PARRA 10/24/2020 10:31:00 AM EDT - 10/24/2020 12:45:[address] [facility] Patient discharged. Outpatient Attender: Papito Garcia MD Physical Therap y 10/10/2020 01:45:00 PM EDT [facility] ([facility]) Outpatient Attender: Eamon PARRA [place] Office 03:15:00 PM EDT [facility] ([facility] Outpatient Attender: Papito Garcia MD Physical Therap y 08/13/2020 08:30:00 AM EST [facility] ([facility]) OFFICE OUTPATIENT NEW 30 MINUTES Attender: EAMON PARRA Physical Therapy 07/18/2020 08:30:00 AM EST [facility] ([facility]) Outpatient Attender: MARIETTA Rodríguez/Jose/Adrien/Jackson dl 06/04/2020 10:30:00 AM EST [facility] ([facility] Outpatient Attender: Felicity PARRA [facility] ce 03/26/2020 02:00:00 PM EDT [facility] ([facility] Immunizations Vaccine Date Status Description Data Source(s) COVID-19 VACCINE Pfizer 03/19/2021 12:00:00 AM EDT completed [employer] Vaccine Series Complete: YESThis Data wa s Submitted to [facility] Via [employer]. COVID-19 VACC, MRNA(PFIZER)/PF 03/19/2021 12:00:00 AM EDT completed [facility] COVID-19 VACCINE Pfizer 02/26/2021 12:00:00 AM EDT completed [employer] Vaccine Series Complete: NOThis Data was Submitted to [facility] [employer]. COVID-19 VACC, MRNA(PFIZER)/PF 02/26/2021 12:00:00 AM EDT completed [facility] Medications Medication Brand Name Start Date Product Form Dose Route Admi nistrative Instructions Pharmacy Instructions Status Indications Reaction Description Data Source(s) Mupirocin 0.02 MG/MG Topical Ointment Mupirocin 09/19/2020 12:00:00 AM EST completed [facility] ([facility] chlorhexidine gluconate 40 MG/ML Medicated Liquid Soap [Hibi clens] Hibiclens 09/19/2020 12:00:00 AM EST completed [facility] ([facility]) Suprep Bowel Prep Kit Suprep Bowel Prep Kit 06/04/2020 12:00:00 AM EST active [facility] ([facility], ) Dicyclomine Hydrochloride 10 MG Oral Capsule Dicyclomine HCL 06/04/2020 12:00:00 AM EST ORAL active [facility] ([facility], ) Magnesium Hydroxide 80 MG/ML Oral Suspension Milk Of Magnesi a 06/04/2020 12:00:00 AM EST ORAL active M [facility] ([facility], ) Bifidobacterium Infantis 4 MG Oral Capsule [Align] Align 03/26/2020 12:00:00 AM EDT ORAL active [facility] ([facility] Insurance Providers Payer name Policy type / Coverage type Policy ID Covered republican ID Covered republican's relationship to delgadillo Policy [place] Plan Information Ghi/Emblem HLTH (pr) Medigap Part B [id number] Family Depende nt [place] [id number] 18 [id number] [place] [id number] S [id number] SELF PAY ONLY [id number] SP [id number] SELF PAY ONLY UNAVAILABLE UNAV AILABLE Self Pay P na S na SELF PAY UNAVAILABLE UNAVAILA BLE Ghi FHP-(DO Not Use) Commercial [id number] Self SELF PAY O [id number] S [id number] [facility] [id number] SP [id number] BRITTANY [id number] SP [id number] Problems, Conditions, and Diagnoses Code Display Name Description Problem Type Effective Dates Data Source(s) Y9[address] or not applicable Unspecified place or not applicable Diagnosis 10/24/2020 10:31:00 AM [facility] [id number] Exposure to other specified factors, ini tial encounter Exposure to other specified factors, initial encounter Diagnosis 10/24/2020 10:31:00 AM [facility] [id number] Personal history of urinary calculi Personal his tory of urinary calculi Diagnosis 10/24/2020 10:31:00 AM [facility] [id number] Nicotine dependence, cigarettes, uncompl icated Nicotine dependence, cigarettes, uncomplicated Diagnosis 10/24/2020 10:31:00 AM [facility] K439 Ventral hernia without obstruction or ga ngrene Ventral hernia without obstruction or gangrene Diagnosis 10/24/2020 10:31:00 AM [facility] K429 Umbilical hernia without obstruction or gangrene Umbilical hernia without obstruction or gangrene Diagnosis 10/24/2020 10:31:00 AM [facility] I10 Essential (primary) hypertension Essential (primary) h ypertension Diagnosis 10/24/2020 10:31:00 AM [facility] E039 Hypothyroidism, unspecified Hypothyroidism, unspecifie d Diagnosis 10/24/2020 10:31:00 AM [facility] [id number] Strain of muscle, fascia and tendon of l ower back, initial encounter Strain of muscle, fascia and tendon of lower back, initial encounter Diagnosis 10/24/2020 10:31:00 AM [facility] M545 Low back pain Low back pain Diagnosis 10/24/2020 10:31:00 AM [facility] Surgeries/Procedures Procedure Description Date Indications Data Source(s) OFFICE OUTPATIENT VISIT 25 MINUTES 03/10/2021 12:00:00 AM EDT [facility] ([facility] Colonoscopy Flexible Proximal To Splenic Flexure W/Biopsy Si ngle/ 12/20/2020 12:00:00 AM EDT [facility] ([facility] Colonoscopy W/ Poly 12/20/2020 12:00:00 AM EDT [facility] ([facility], ) RADEX SHOULDER COMPLETE MINIMUM 2 VIEWS 10/10/2020 12: 00:00 AM EDT [facility] ([facility]) OFFICE OUTPATIENT VISIT 25 MINUTES 09/26/2020 12:00:00 AM EDT [facility] ([facility] ARTHROCENTESIS ASPIR&/INJECTION MAJOR JT/BURSA 021 12:00:00 AM EST [facility] ([facility]) RADIOLOGIC EXAM KNEE COMPLETE 4/MORE VIEWS 07/18/2020 12:00:00 AM EST [facility] ([facility]) RADIOLOGIC EXAM KNEE COMPLETE 4/MORE VIEWS 07/18/2020 12:00:00 AM EST [facility] ([facility]) RADIOLOGIC EXAM KNEE COMPLETE 4/MORE VIEWS 07/18/2020 12:00:00 AM EST [facility] ([facility]) Results ID Date Data Source [id number] 12/20/2020 12:59:00 PM [facility] Name Value Range Interpretation Code Description Data Jenn rce(s) Supporting Document(s) Surgical pathology study Laboratory test result [facility] ([facility]) FINAL DIAGNOSIS A-Ascending colon polyps, polypectomy: Hyperplastic polyp, fragments. B-Transverse colon polyps, polypectomy: Hyperplastic polyp, fragments. C-Sigmoid colon polyps, polypectomy: Hyperplastic polyp, fragments. D-Rectosigmoid polyps, polypectomy: Hyperplastic polyp, fragments. 12/23/2020 - 1020 CLINICAL DIAGNOSIS Rectal bleeding, diarrhea 12/20/2020 - 150 GROSS DIAGNOSIS A - Received in formalin labeled "ascending colon polyps" and consists of fragments of tissue 0.2 x 0.1 x 0.1 cm. All in one. B - Received in formalin labeled "transverse colon polyps" and consists of fragments of tissue 1 x 0.5 x 0.5 cm. All in one. C - Received in formalin labeled "sigmoid colon polyps" and consists of fragments of tissue 0.3 x 0.2 x 0.1 cm. All in one. D - Received in formalin labeled "rectosigmoid polyps" and consists of fragments of tissue 1 x 1 x 0.5 cm. in aggregate. All in one. -OA 12/20/2020 - 150 Signed ZOEY PAN MD 12/23/2020 1020 ID Date Data Source [id number] 12/15/2020 09:05:00 AM EDT [facility] Name Value Range Interpretation Code Description Data Jenn rce(s) Supporting Document(s) SARS-CoV-2 (COVID-19) RNA [Presence] in Respiratory specimen by BLESSING with probe detection Not Detected [facility] This lab was ordered by [facility] and reported by [facility]. ID Date Data Source [id number] 10/24/2020 10:31:[address] [facility] [address] [facility] Emergency Department [address] [place] [address] Phone #: [phone] 10/24/2020 10:09 Patient: NIR KENNEDY Sex: F : 1965 Age: 55yWEIGHT:97.5 kg (S) HEIGHT:62 inches (S) BMI:39.4ALLERGIES: Cephalosporins, IV ContrastCHIEF COMPLAINT: back painDIAGNOSIS: BackacheLAB ORDERSOrder Description Priority Entered Acknowledged InitialedUrinalysis (Clean STAT 10:26 10/24/2020 10:36 BurnhamCatch) Teena Foss RN; shipwright supervisorRaji James ER Per protocol; Dylan Ely MDCBC w Diff STAT 10:34 10/24/2020 10:38 Dylan Haas MD; Billy RNCMP STAT 10:34 10/24/2020 10:38 Dylan Haas MD; Billy RNLactic Acid STAT 10:34 10/24/2020 10:38 Dylan Haas MD; Billy RNDIAGNOSTIC STUDY ORDERSOrder Description Priority Entered Acknowledged InitialedCT ABD PEL W/O STAT 10:34 10/24/2020 11:04 BurnhamOral W/O IV Dylan Thrasher MD; shipwright supervisor, Raji Parra Tech1(Oxygen?(No))(IV?(No)) Reason for Study: left flank painMEDICATION/IV/DRIP/FLUID ORDERSOrder Description Priority Entered Acknowledged InitialedGENERAL ORDERSOrder Description Priority Entered Acknowledged Initialed[Electronically signed by Phill Cervantes RN (12:45 10/24/2020)][Electronically signed by Dylan Thrasher MD (22:45 10/24/2020)][Electronically locked by Phill Cervantes RN (12:45 10/24/2020)] Name Value Range Interpretation Code Description Data Jenn rce(s) Supporting Document(s) ID Date Data Source [id number] 10/24/2020 10:31:[address] [facility] 1 Medication Reconciliation Report [facility] Emergency Department [address] [place] [address] Phone #: ext- [phone] 10/24/2020 10:09 [id number] Sex[facility] F : 1965 Age: 55yWeight: 97.5 kgHeight/Length: 62 in.BMI: 39.4ALLERGIES: Cephalosporins, IV ContrastThe patient's Home Medications are listed below:CONTINUE TAKING THE FOLLOWING MEDICATIONS: Aleve Oral 2, daily FLUoxetine HCl Oral 40 mg, daily Levothyroxine Sodium Oral 125 mcg, daily Lipitor Oral 10 mg, daily Lisinopril-hydroCHLOROthiazide Oral (20-12.5 mg), dailyThe source(s) of the original Home Medication information:patientThe following Medications were given to the patient in the Emergency Department:None.The following Medications were prescribed to the patient:None. Name Value Range Interpretation Code Description Data Jenn rce(s) Supporting Document(s) ID Date Data Source [id number] 10/24/2020 10:31:[address] [facility] [address] [facility] Emergency Department [address] [place] [address] Phone #: ext- [phone] 10/24/2020 10:09 Patient: NIR KENNEDY [facility]#: [id number] Sex: F : 1965 Age: 55yWeight: 97.5 kgHeight/Length: 62 inBMI: 39.4ALLERGIES: IV Contrast, CephalosporinsDate/Time Medication Administered Medication Ordered Name Value Range Interpretation Code Description Data Jenn rce(s) Supporting Document(s) ID Date Data Source [id number] 10/24/2020 10:31:[address] [facility] [address] [facility] Emergency Department [address] [place] [address] Phone #: ext- [phone] 10/24/2020 10:09 Patient: NIR KENNEDY Sex: F : 1965 Age: 55yAcute nontraumatic lumbar back pain associated with muscle strain.INSTRUCTIONSLimit lifting. No strenuous activity. Return to work tomorrow.(It is important to follow up with your primary care physician. Take Tylenol and motrin. return if worse orany new symptoms.).Warnings: GENERAL WARNINGS: Return or contact your physician immediately if your conditionworsens or changes unexpectedly, if not improving as expected, or if other problems arise.Your Current Medications: Your current home medications have been reviewed.CONTINUE TAKING THE FOLLOWING MEDICATIONS:Aleve Oral : 2 daily.FLUoxetine HCl Oral : 40 mg daily.Levothyroxine Sodium Oral : 125 mcg daily.Lipitor Oral : 10 mg daily.Lisinopril-hydroCHLOROthiazide Oral : Tablet 20-12.5 mg, daily.Follow-up:Follow up with your doctor tomorrow even if well. Call for an appointment. Reason for referral: evaluation.Summary of care provided to patient via paper.Understanding of the discharge instructions verbalized by patient. ADDITIONAL INFORMATIONBack Pain (Acute or Chronic) [address] [facility] Emergency Department [address] [place] [address] Phone #: ext- [phone] 10/24/2020 10:09 Patient: NIR KENNEDY Sex: Franky : 1965 Age: 55yBack pain is one of the most common problems. The good news is that most people feel better in 1 to2 weeks, and most of the rest in 1 to 2 months. Most people can remain active.People who have pain describe it differently--not everyone is the same. The pain can be sharp, stabbing, shooting, aching, cramping or burning. Movement, standing, bending, lifting, sitting, or walking may worsen pain. It can be limited to one spot or area, or it can be more generalized. It can spread upwards, to the front, or go down your arms or legs (sciatica). It can cause muscle spasm.Most of the time, mechanical problems with the muscles or spine cause the pain. Mechanicalproblems are usually caused by an injury to the muscles or ligaments. Illness can cause back pain,but it's usually not caused by a serious illness. Mechanical problems include: [address] [facility] Emergen cy Department [address] [place] [address] Phone #: ext- [phone] 10/24/2020 10:09 Patient: NIR KENNEDY Sex: F : 1965 Age: 55y Physical activity such as sports, exercise, work, or normal activity Overexertion, lifting, pushing, pulling incorrectly or too aggressively Sudden twisting, bending, or stretching from an accident, or accidental movement Poor posture Stretching or moving wrong, without noticing pain at the time Poor coordination, lack of regular exercise (check with your doctor about this) Spinal disc disease or arthritis StressPain can also be related to , or illness like appendicitis, bladder or kidney infections, pelvicinf ections, and many other things.Acute back pain usually gets better in 1 to 2 weeks. Back pain related to disk disease, arthritis in thespinal joints, or narrowing of the spinal canal (spinal stenosis) can become chronic and last formonths or years.Unless you had a physical injury such as a car accident or fall, X-rays are usually not needed for thefirst assessment of back pain. If pain continues and does not respond to medical treatment, you mayneed X-rays and other tests.Home careTry this home care advice: When in bed, try to find a position of comfort. A firm mattress is best. Try lying flat on your back with pillows under your knees. You can also try lying on your side with your knees bent up toward your chest and a pillow between your knees. At first, don't try to stretch out the sore spots. If there is a strain, it's not like the good soreness you get after exercising without an injury. In this case, stretching may make it worse. Don't sit for long periods, as in a long car ride or during other travel. This puts more stress on the lower back than standing or walking. During the first 24 to 72 hours after an acute injury or flare up of chronic back pain, apply an ice pack to the painful area for 20 minutes and then remove it for 20 minutes. Do this over a period of 60 to 90 minutes or several times a day. This will reduce swelling and pain. Wrap the ice pack in a thin towel or plastic to protect your skin. You can start with ice, then switch to heat. Heat (hot shower, hot bath, or heating pad) reduces pain and works well for muscle spasms. Heat can be applied to the painful area for [address] [facility] Emergency Department [address] [place] [address] Phone #: ext- [phone] 10/24/2020 10:09 [id number] Sex[facility] F : 1965 Age: 55y minutes then remove it for 20 minutes. Do this over a period of 60 to 90 minutes or several times a day. Don't sleep on a heating pad. It can lead to skin rowe or tissue damage. You can alternate ice and heat therapy. Talk with your doctor about the best treatment for your back pain. Therapeutic massage can help relax the back muscles without stretching them. Be aware of safe lifting methods and don't lift anything without stretching first.MedicinesTalk to your doctor before using medicine, especially if you have other medical problems or are takingother medicines. You may use [id number] medicine as directed on the bottle to control pain, unless another pain medicine was prescribed. If you have chronic conditions like diabetes, liver or kidney disease, stomach ulcers, or gastrointestinal bleeding, or are taking blood thinners, talk to your doctor before taking any medicine. Be careful if you are given a prescription medicines, narcotics, or medicine for muscle spasms. They can cause drowsiness, affect your coordination, reflexes, and judgement. Don't drive or operate heavy machinery.Follow-up careFollow up with your healthcare provider, or as advised.If X-rays were taken, you will be told of any new findings that may affect your careCall 911Call 911 if any of the following occur: Trouble breathing Confusion Very drowsy or trouble awakening Fainting or loss of consciousness Rapid or very slow heart rate Loss of bowel or bladder controlWhen to seek medical advice [address] [facility] Emergency Department [address] [place] [address] Phone #: ext- [phone] 10/24/2020 10:09 Patient: NIR KENNEDY Sex: F : 1965 Age: 55yCall your healthcare provider right away if any of these occur: Pain becomes worse or spreads to your legs Weakness or numbness in one or both legs Numbness in the groin or genital area 2019 [employer]. [address] [place] [address]. All rights reserved. This information is not intended as asubstitute for professional medical care. Always follow your healthcare professional's instructions. You have been given the following additional information: Back Pain (Acute or Chronic) Limit lifting. No strenuous activity. Return to work tomorrow.(Electronically signed by yDlan Thrasher MD 10/24/2020 22:45) Name Value Range Interpretation Code Description Data Jenn rce(s) Supporting Document(s) ID Date Data Source [id number] 10/24/2020 10:31:[address] [facility] 1 Clinical Report - Nurses [facility] Emergency Department [address] [place] [address] Phone #: ext- [phone] 10/24/2020 10:09 Patient: NIR KENNEDY Sex: F : 1965 Age: 55yTRIAGEArrived by private vehicle. Historian: patient. Accompanied by family. ( presents with daughter with c/oL flank pain that radiates around to abd. which started 2 days ago, hx of kidney stones, no nausea orvomiting).Triage time: 10:13 10/24/2020. Acuity: LEVEL 3.Chief Complaint: LEFT-SIDED FLANK PAIN (and abd. pain).Alert. No acute distress.Onset. (2 days). 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 SEPSIS SCREEN NEGATIVE. No suspected or confirmedsigns of infection present. --10:22 10/24/20 Teena Foss RN10:13 10/24/20. BP: 165/100. MAP: 121. HR: 85. RR: 18. O2 saturation: 98%. Temp: 97.7 F. Pain levelnow: 10. --10:22 10/24/20 Teena Foss RN.Weight: 97.5 kg stated. Height/Length: 62 inches Per Patient. BMI: 39.4. --10:14 10/24/20 Teena Foss RN.MedicationsAleve Oral 2, daily. --10:19 10/24/20 Teena Foss RN [place] Uoxetine HCl Oral 40 mg, daily. --10:10/24/20 Teena Foss RN Lipitor Oral 10 mg, daily. --10:20 10/24/20 Teena Foss RN Levothyroxine Sodium Oral 125 mcg, daily. --10:20 10/24/20 Teena Foss RN Lisinopril-hydroCHLOROthiazide Oral (Tablet 20-12.5 mg), daily. --10:20 10/24/20 Teena Foss RN.AllergiesCephalosporins. --10:20 10/24/20 Teena Foss RNIV Contrast. --10:21 10/24/20 Teena Foss RN.PROBLEMS:Bursitis.Hypothyroidism.Nephrolithiasis.Hypertension. --10:10/24/20 Teena Foss RN. 2 Clinical Report - Nurses [facility] Emergency Department [address] [place] [address] Phone #: ext- [phone] 10/24/2020 10:09 Patient: NIR KENNEDY Sex: F : 1965 Age: 55y Medication/allergy information source: the patient and patient's previous visit record. --10:10/24/20 Teena Foss RN. ADDITIONAL SURGERIES: Appendectomy. Hysterectomy. Knee Surgery. Lithotripsy. --10:21 10/24/20 Teena Foss RN. History PAST MEDICAL HX: Has had a hysterectomy. SOCIAL HX: Smoker- current status unknown (3-4 cigs day.). Occasional alcohol use. No drug use. The patient was offered HIV testing but declined and hepatitis C testing but declined. The patient has not traveled outside the [place] Infectious disease exposure: No infectious disease exposure. (has had covid in past). SELF HARM ASSESSMENT: Self harm assessment was performed. The patient answered "no" to the question(s) "Have you recently felt down, depressed, or hopeless?". ABUSE ASSESSMENT: No report of abuse. NUTRITIONAL RISK ASSESSMENT: The nutritional risk assessment revealed no deficiencies. FUNCTIONAL ASSESSMENT: Functional assessment: no impairments noted. LEARNING NEEDS ASSESSMENT: The learning needs assessment revealed no barriers. FALL RISK ASSESSMENT: Fall risk assessment completed. No risk factors identified. SKIN INTEGRITY ASSESSMENT: Skin integrity risk assessment completed. No skin integrity risk identified. --10:10/24/20 Teena Foss RN.PHYSICAL ASSESSMENTAmbulatory to room. ( no pain with palpation of abdomen or either flanks).GENERAL / NEURO / PSYCH: Alert. Oriented X 4. Appears in pain.HEENT: Mucous membranes are pink.RESPIRATORY: Respirations not labored. Breath sounds within normal limits.CVS: Normal heart rate and rhyt hm. Capillary refill less than 2 seconds.GI / : Abdomen soft and nontender. Bowel sounds within normal limits.SKIN: Skin is warm and dry. --10:37 10/24/20 Phill Cervantes RN.NURSING PROGRESS NOTESPatient gowned. Reassurance given. Two patient identifiers checked. Bed placed in lowest position.Brakes of bed on. Patient ready for evaluation. --10:22 10/24/20 Teena Foss RN. 3 Clinical Report - Nurses [facility] Emergency Department [address] [place] [address] Phone #: [phone]- [phone] 10/24/2020 10:09 [id number] Sex[facility] F : 1965 Age: 55yDISPOSITION / DISCHARGE Condition at departure: improved and stable. Discharge instructions provided and reviewed with the patient. Activity restrictions (light lifting) reviewed. Work note given. Patient verbalized understanding. Written instructions provided in German. The patient was discharged by the physician. She was discharged home and accompanied by inventory control supervisor. She left ambulatory and via private vehicle. Fender Mechanic driving. --12:45 10/24/20 Phill Cervantes RN 12:44 10/24/20. BP: 114/66. MAP: 82. HR: 71. RR: 16. O2 saturation: 95%. Pain level now: 11/18. --12:45 10/24/20 Phill Cervantes RN.Locked/Released at 10/24/2020 12:45 by Phill Cervantes RN Name Value Range Interpretation Code Description Data Jenn rce(s) Supporting Document(s) ID Date Data Source [id number] 10/24/2020 10:31:[address] [facility] 1 Clinical Report - Physicians/Mid Levels [facility] Emergency Department [address] [place] [address] Phone #: ext- [phone] 10/24/2020 10:09 [id number] Sex: F : 1965 Age: 55y Arrived- By private vehicle. Historian- patient. Disposition decision: 12:30 10/24/2020.HISTORY OF PRESENT ILLNESS Chief Complaint: BACK PAIN. It is described as being mild and in the area of the left flank and radiating to the abdomen. Onset- 2 days and it is still present. Modifying factors. Not worsened by anything. Not relieved by anything. No bladder dysfunction, bowel dysfunction, sensory loss or motor loss. Additional history - presents with daughter with c/o L flank pain that radiates around to abd. which started 2 days ago, hx of kidney stones, no nausea or vomiting. Patient denies an injury. No injury to the head or neck. Similar symptoms previously. None. Recent medical care: Not recently seen/assessed.REVIEW OF SYSTEMS No fever, chills, eye irritation or difficulty with urination or urination. No urinary frequency or urinary frequency, hematuria or skin rash or rash. No headache, depression, sore throat or throat or cough. No difficulty breathing, chest pain or pain, nausea or vomiting. No diarrhea, black stools, bloody stools, chills or fever. No double vision, ear pain, nasal congestion, cough or difficulty breathing. No diarrhea, nausea, vomiting, hematuria or neck pain. No headache or easy bruising. The patient has had abdominal pain and pain and back pain.PAST HISTORY See nurses notes. Problems: Bursitis. Hypothyroidism. Nephrolithiasis. Hypertension. Additional Surgeries: Append ectomy. Hysterectomy. Knee Surgery. Lithotripsy. Medications: Lisinopril- hydroCHLOROthiazide Oral (Tablet 20-12.5 mg), daily. 2 Clinical Report - Physicians/Mid Levels [facility] Emergency Department [address] [place] [address] Phone #: ext- [phone] 10/24/2020 10:09 Patient: NIR KENNEDY [facility]#: [id number] Sex: F : 1965 Age: 55y Levothyroxine Sodium Oral 125 mcg, daily. Lipitor Oral 10 mg, daily. FLUoxetine HCl Oral 40 mg, daily. Aleve Oral 2, daily. Allergies: Cephalosporins. IV Contrast.SOCIAL HISTORY No drug use.ADDITIONAL NOTES The nursing notes have been reviewed.PHYSICAL EXAM Vital Signs: 10/24/2020 11:20 BP: 167/99. MAP: 121. HR: 83. RR: 18. O2 saturation: 99%. 10/24/2020 10:13 BP: 165/100. MAP: 121. HR: 85. RR: 18. O2 saturation: 98%. Temp: 97.7 F. Pain level now: 11/18. Have been reviewed and appear to be correct. Blood pressure normal. Mean arterial pressure- normal. Heart rate normal. Respiratory rate normal. Temperature normal. Oxygen saturation normal. Appearance: Alert. No acute distress. HEENT: Normal external inspection. Eyes: Pupils equal, round and reactive to light. ENT: Pharynx normal. Neck: Normal inspection. Neck nontender. Painless ROM. CVS: Heart sounds normal. Pulses normal. Respiratory: No respir atory distress. Painless inspiration. Breath sounds normal. Abdomen: No visible injury. Soft and nontender. Bowel sounds normal. Back: Normal inspection. No tenderness. Painless ROM. Skin: Skin warm and dry. Normal skin color. No rash. Normal skin turgor. Extremities: Extremities exhibit normal ROM. Extremities nontender. Neuro: Oriented X 3. Mood/affect normal. No motor deficit. No sensory deficit.LABS, X-RAYS, AND EKG Laboratory Tests: CBC w Diff: (DEEPAK: 10/24/2020 10:47) ( MsgRcvd 10/24/2020 11:42) Final results Test Result Flag Units (Reference) CBC W/AUTOMATED DIFF COMPLETE BLOOD COUNT WBC 7.4 10/uL (4.2 - 11.0) RBC 4.62 10/uL (4.20 - 5.40) HEMOGLOBIN 13.8 g/dL (12.0 - 16.0) HEMATOCRIT 40.8 % (37.0 - 47.0) MCV 88.3 fL (81.0 - 101) MCH 29.9 pg (27.0 - 34.0) MCHC 33.8 g/dL (31.0 - 36.0) 3 Clinical Report - Physicians/Mid Levels [facility] Emergency Department [address] [place] [address] Phone #: [phone]- [phone] 10/24/2020 10:09 [id number] Sex: F : 1965 Age: 55y RDW 12.4 % (11.5 - 14.5) PLATELETS 255 10/uL (150 - 450) MPV 9.9 fL (7.4 - 10.4) NEUT 68.0 % (37.0 - 80.0) LYMPH 22.0 L % (25.0 - 40.0) MONO 7.2 % (3.0 - 8.0) EOS 1.8 % (0.0 - 7.0) BASO 0.7 % (0.0 - 2.5) %IG 0.3 H % (0.0 - 0.0) %NRBC 0.0 % (0.0 - 0.0) #NEUT 5.04 10/uL (2.00 - 6.90) #LYMPH 1.63 10/uL (0.60 - 3.40) #MONO 0.53 10/uL (0.00 - 0.90) #EOS 0.13 10/uL (0.00 - 0.70) #BASO 0.05 10/uL (0.00 - 0.20) #IG 0.02 10/uL (0.00 - 0.10) #NRBC 0.00 10/uL (0.00 - 0.00) MANUAL DIFF NOT INDICATED RBC MORPH NOT INDICATEDCMP: (DEEPAK: 10/24/2020 10:47) ( MsgRcvd 10/24/2020 11:28) Final results Test Result Flag Units (Reference) COMPREHENSIVE METABOLIC PANEL COMPREHENSIVE METABOLIC PANEL SODIUM 135 mEq/L (134 - 153) POTASSIUM 3.6 mEq/L (3.6 - 5.0) CHLORIDE 102 mEq/L (98 - 107) CO2 25 MEQ/L (22 - 30) GLUCOSE 170 H MG/DL (70 - 99) BUN 15 MG/DL (7 - 21) CREATININE 0.6 L MG/DL (0.7 - 1.5) BUN/CREAT 25 (8 - 27) TOTAL PROTEIN 6.9 G/DL (6.3 - 8.2) ALBUMIN 4.0 G/DL (3.9 - 5.0) GLOBULIN 2.9 GM/DL (2.4 - 3.2) A/G RATIO 1.4 (0.8 - 2.0) CALCIUM 9.4 MG/DL (8.4 - 10.2) TOTAL BILI <0.7 MG/DL (0.2 - 1.3) ALKALINE PHOS 94 U/L (38 - 126) SGOT/AST 15 U/L (5 - 40) SGPT/ALT 23 U/L (7 - 56) ANION GAP 8.0 mmol/L (8.0 - 16.0) AGE 55 yrs NON-AA GFR >60 mL/min AFR AMER GFR >60 mL/min Male GFR Interprentation 20-49 yrs >60 mL/min Joedpw14-73 yrs >56 mL/min Normal 60-69 yrs >49 mL/min Normal 70-79yrs>42 mL/min Normal 80 and above >35 mL/min Normal Female GFRInterpretation 20-39 yrs >60 mL/min Normal 40-49 yrs >58 mL/minNormal 50-59 yrs >51 mL/min Normal 60-69 yrs >45 mL/min Oxveek13-01 yrs >39 mL/min Normal 80 and above >32 mL/min NormalLactic Acid: (DEEPAK: 10/24/2020 10:47) ( MsgRcvd 10/24/2020 11:08) Final results Test Result Flag Units (Reference) LACTIC ACID 1.8 MMOL/L (0.2 - 2.2)CT ABD PEL W/O Oral W/O IV Contrast: (DEEPAK: 10/24/2020 10:34) ( MsgRcvd 10/24/2020 15:31)Final results 4 Clinical Report - Physicians/Mid Levels [facility] Emergency Department [address] [place] [address] Phone # : ext- [phone] 10/24/2020 10:09 Patient: NIR KENNEDY Sex: F : 1965 Age: 55yExamCT ABD //T// PELV W/O ORAL W/O IV [facility] [address] [place] [address] PHONE: [phone] FAX: [phone] .................. : MARCIA Cobos Acct Number.................. : [id number]. ................. : TR-07 MR Number ................... : [id number] type ............. : E/R Discharge Date......... ... : 10/24/20Admit Date ......... : 10/24/20 Admit Phys .................... : COONEYNORMDate of ....... : 1965 Family Phys ................... : BONY MICPhone .................. : [phone] Age ..................... ........... : 55Film# .................. .:[id number] Sex ................................. : FUnsigned transcriptions are preliminary reports and do not represent a medical or legal document CT ABD Reason(s): left flank painCT SCAN OF THE ABDOMEN/PELVIS WITHOUT CONTRAST, 10/24/20:INDICATION: Left flank pain.FINDINGS:Lung bases are clear. No focal infiltrate or consolidation is identified. No discrete nodule or massis present. Heart appears unremarkable. Liver shows fatty infiltration. Gallbladder is withinnormal limits. Spleen, adrenal glands, and pancreas appear unremarkable. Multiple right-sidedrenal calculi are identified, which are non- obstructive. Largest measures approximately 4 mm insize. The left kidney also demonstrates non-obstructive calculi. Largest measures approximately3 mm. There is a cyst identified at the lower pole of the left kidney measuring approximately 5.5x 5.0 cm. Hounsfield units measure 9. This most likely represents a cyst. The appendix is notdistinctly visualized. Surgical christie are present at the cecum, suggesting a prior appendectomy.Correlation with the patient's surgical history is recommended. Diffuse diverticulosis isidentified. No clear evidence of diverticulitis is identified. There is a fat-containing umbilicalhernia. There is also a midline ventral hernia more inferiorly, which contains omental fat. Nofree fluid is identified in the pelvis. Osseous structures show degenerative changes.IMPRESSION:Bilaeral non-obstructive renal calculi. Largest is on the right measuring 4 mm. No definitehydronephrosis is identified bilaterally. No definite ureteral calculi are identified. Fatty liver.Appendix appears to be surgically absent. Correlate with surgical history. Diverticulosis. Nodiverticulitis. Fat containing umbilical hernia. In the midline inferior to the umbilicus there is asecond ventral hernia which contains omental fat.While performing the above CT examination, radiation dose reduction was accomplishedutilizing automated exposure control, adjusting of the mA and kV based on the patient's bodysize and/or the use of imperative reconstructive techniques.CT dose 1639.9 mGycm. [address] [place], [place] [address]PHONE: [phone] FAX: [phone] .................. : MARCIA Cobos Acct Number.................. : [id number] Clinical Report - Physicians/Mid Levels [facility] Emergency Department [address] [place] [address] Phone #: ext- [phone] 10/24/2020 10:09 Patient: NIR KENNEDY Sex: F : 1965 Age: 55y ROOM. ................. : TR- MR Number ................... : [id number] Stay type ............. : E/R Discharge Date......... ... : 10/24/20 Admit Date ......... : 10/24/20 Admit Phys .................... : COONEYNORM Date of ....... : 1965 Family Phys ................... : Visier Phone .................. : [phone] Age ................................ : 55 Film# .................. .:[id number] Sex ................................. : F Unsigned transcriptions are preliminary reports and do not represent a medical or legal document CT ABD Reason(s): left flank pain Examination dictated by AIDA Holder. Examination was reviewed with Lilia Mckay MD, radiologist at the time of this dictation. Electronically Reviewed and Signed By LILIA MCKAY MD , 10/24/20 15:31, [facility] Transcribe Initials: SSR, Transcribe Date: 10/24/20 14:11, Dictation Date: Copy for: EMERGENCY DEPT via [place] Copy for: 710 MED REC DISCHARGED Page 2 [id number]: (DEEPAK: 10/24/2020 10:30) ( MsgRcvd 10/24/2020 11:07) Final results Test Result Flag Units (Reference) URINALYSIS URINALYSIS SOURCE R COLOR yellow (NORMAL: Yello CLARITY clear (NORMAL: Clear SPEC GRAVITY 1.015 (1.001 - 1.030 pH 6 (5 - 9) GLUCOSE NORM (NORMAL: Negat BILIRUBIN NEG (NORMAL: Negat KETONE NEG (NORMAL: Negat PROTEIN 15 (NORMAL: Negat NITRITE NEG (NORMAL: Negat BLOOD 50 A (NORMAL: Negat LEUK EST NEG (NORMAL: Negat UROBILINOGEN NOR (less than 1.0 MICROSCOPIC See Below WBC 0 - 1 (NORMAL: NONE RBC 0 - 1 (NORMAL: NONE EPITHELIAL MODERATE A (NORMAL: NONE BACTERIA Trace (NORMAL: NONE AMORPH SED RARE (NORMAL: NONE 6 Clinical Report - Physicians/Mid Levels [facility] Emergency Department [address] [place] [address] Phone #: ext- [phone] 10/24/2020 10:09 [id number] Sex: F : 1965 Age: 55y.PROGRESS AND PROCEDURES Course of Care: pt presents to the ED for evaluation of her left flank pain. she states that it wraps around to her abdomen. she states that it does not quite feel like her kidney stone. she denies any hematuria. on exam, she has no tenderness to palpation. labs grossly nl. urine shows small amount of blood labs grossly nl. her CT shows non- obstructing kidney stones. no acute pathology. The CT does show 2 small fat containing hernias. one is umbilical the other is ventral. I discussed this with the patient. she is non-toxic. I encouraged pt to f/u with general surgery if it worsens or to return for further evaluation. i find no acute infectious process. Pt was discharged. Patient/family counseled. Disposition: Discharged. Condition: good and stable.CLINICAL IMPRESSION Acute nontraumatic lumbar back pain associated with muscle strain.INSTRUCTIONS Limit lifting. No strenuous activity. Return to work tomorrow. (It is important to follow up with your primary care physician. Take Tylenol and motrin. return if worse or any new symptoms.). Warnings: GENERAL WARNINGS: Return or contact your physician immediately if your condition worsens or changes unexpectedly, if not improving as expected, or if other problems arise. Your Current Medications: Your current home medications have been reviewed. CONTINUE TAKING THE FOLLOWING MEDICATIONS: Aleve Oral : 2 daily. FLUoxetine HCl Oral : 40 mg daily. Levothyroxine Sodium Oral : 125 mcg daily. Lipitor Oral : 10 mg daily. Lisinopril-hydroCHLOROthiazide Oral : Tablet 20-12.5 mg, daily. Follow-up: Follow up with your doctor tomorrow even if well. Call for an appointment. Reason for referral: evaluation. Summary of care provided to patient via paper. Understanding of the discharge instructions verbalized by patient. 7 Clinical Report - Physicians/Mid Levels [facility] Emergency Department [address] [place] [address] Phone #: ext- [phone] 10/24/2020 10:09 Patient: NIR KENNEDY Sex: F : 1965 Age: 55y(Electronically signed by Dylan Thrasher MD 10/24/2020 22:45) Name Value Range Interpretation Code Description Data Jenn rce(s) Supporting Document(s) ID Date Data Source [id number] 10/24/2020 03:31:00 [place] [address] PHONE: [phone] FAX: [phone] Name .................. : MARCIA Cobos Acct Number.................. : [id number] ROOM. ................. : TR- MR Number ................... : [id number] Stay type ............. : E/R Discharge Date......... ... : 10/24/20 Admit Date ....... .. : 10/24/20 Admit Phys .................... : COONEYNORM Date of ....... : 1965 Family Phys ................... : [facility] Phone .................. : [phone] Age ................................ : 55 Film# .................. .:[id number] Sex ................................. : F Unsigned transcriptions are preliminary reports and do not represent a medical or legal document CT ABD & PELV W/O ORAL W/O [place] [id number] COMPLETE:10/24/20 11:03 MICHAELA 8852 Reason(s): left flank pain CT SCAN OF THE ABDOMEN/PELVIS WITHOUT CONTRAST, 10/24/20: INDICATION: Left flank pain. FINDINGS: Lung bases are clear. No focal infiltrate or consolidation is identified. No discrete nodule or mass is present. Heart appears unremarkable. Liver shows fatty infiltration. Gallbladder is within normal limits. Spleen, adrenal glands, and pancreas appear unremarkable. Multiple right-sided renal ca lculi are identified, which are non-obstructive. Largest measures approximately 4 mm in size. The left kidney also demonstrates non-obstructive calculi. Largest measures approximately 3 mm. There is a cyst identified at the lower pole of the left kidney measuring approximately 5.5 x 5.0 cm. Hounsfield units measure 9. This most likely represents a cyst. The appendix is not distinctly visualized. Surgical christie are present at the cecum, suggesting a prior appendectomy. Correlation with the patient's surgical history is recommended. Diffuse diverticulosis is identified. No clear evidence of diverticulitis is identified. There is a fat-containing umbilical hernia. There is also a midline ventral hernia more inferiorly, which contains omental fat. No free fluid is identified in the pelvis. Osseous structures show degenerative changes. IMPRESSION: Bilaeral non-obstructive renal calculi. Largest is on the right measuring 4 mm. No definite hydronephrosis is identified bilaterally. No definite ureteral calculi are identified. Fatty liver. Appendix appears to be surgically absent. Correlate with surgical history. Diverticulosis. No diverticulitis. Fat containing umbilical hernia. In the midline inferior to the umbilicus there is a second ventral hernia which contains omental fat. While performing the above CT examination, radiation dose reduction was accomplished utilizing automated exposure control, adjusting of the mA and kV based on the patient's body size and/or the use of imperative reconstructive techniques. CT dose 1639.[address] [facility] [address] [place] [address] PHONE: [phone] FAX: [phone] Name .................. : MARCIA Cobos Acct Number.................. : [id number] ROOM. ................. : TR-07 MR Number ................... : [id number] Stay type ............. : E/R Discharge Date......... ... : 10/24/20 Admit Date ......... : 10/24/20 Admit Phys .................... : COONEYNORM Date of ....... : 1965 Family Phys ................... : BONY PEREZ Phone .................. : [phone] Age ................................ : 55 Film# .................. .:[id number] Sex ................................. : F Unsigned transcriptions are preliminary reports and do not represent a medical or legal document CT ABD & PELV W/O ORAL W/O IV [id number] COMPLETE:10/24/20 11:03 MICHAELA 8852 Reason(s): left flank pain Examination dictated by AIDA Hodler. Examination was reviewed with Lilia Mckay MD, radiologist at the time of this dictation. Electronically Reviewed and Signed By LILIA MCKAY MD , 10/24/20 15:31, [facility] Transcribe Initials: SSR, Transcribe Date: 10/24/20 14:11, Dictation Date: Copy for: EMERGENCY DEPT via [facility] Copy for: 710 MED REC DISCHARGED Page 2 of 2 Name Value Range Interpretation Code Description Data Jenn rce(s) Supporting Document(s) ID Date Data Source [id number] 10/24/2020 10:47:00 AM EDT [facility] ([facility] Name Value Range Interpretation Code Description Data Jenn rce(s) Supporting Document(s) CBC W/Automated Diff Laboratory test result [facility] ([facility] COMPLETE BLOOD COUNT RBC 4.62 10^6/uL 4.20-5.40 [facility] ([facility] WBC 7.4 10^3/uL 4.2-11.0 [facility] ([facility] Hemoglobin 13.8 g/dL 12.0-16.0 [facility] ([facility] Hematocrit 40.8 % 37.0-47.0 [facility] ([facility] MCH 29.9 pg 27.0-34.0 [facility] MCV 88.3 fL 81.0-101 [facility] MCHC 33.8 g/dL 31.0-36.0 [facility] RDW 12.4 % 11.5-14.5 [facility] Platelets 255 10^3/uL 150-450 [facility] MPV 9.9 fL 7.4-10.4 [facility] Neut 68.0 % 37.0-80.0 [facility] Lymph 22.0 % 25.0-40.0 Below low normal [facility] ( [facility] [place] 7.2 % 3.0-8.0 [facility] Eos 1.8 % 0.0-7.0 [facility] Baso 0.7 % 0.0-2.5 [facility] %Ig 0.3 % 0.0-0.0 Above high normal [facility] ([facility] %NRBC 0.0 % 0.0-0.0 [facility] #Lymph 1.63 10^3/uL 0.60-3.40 [facility] #[place] 0.53 10^3/uL 0.00-0.90 [facility] ([facility] #Neut 5.04 10^3/uL 2.00-6.90 [facility] #Eos 0.13 10^3/uL 0.00-0.70 [facility] #Baso 0.05 10^3/uL 0.00-0.20 [facility] #NRBC 0.00 10^3/uL 0.00-0.00 [facility] ([facility] #Ig 0.02 10^3/uL 0.00-0.10 [facility] Manual Diff Laboratory test result M RACHAEL ([facility] RBC Morph Laboratory test result ME MARGO ([facility] ID Date Data Source [id number] 10/24/2020 10:47:00 AM EDT [facility] ([facility] Name Value Range Interpretation Code Description Data Jenn rce(s) Supporting Document(s) Comprehensive Metabo Laboratory test result [facility] ([facility] COMPREHENSIVE METABOLIC PANEL Potassium 3.6 meq/L 3.6-5.0 [facility] Sodium 135 meq/L 134-153 [facility] ([facility] Chloride 102 meq/L 98-107 [facility] Co2 25 meq/L 22-30 [facility] Glucose 170 mg/dL 70-99 Above high normal [facility] ([facility] BUN 15 mg/dL 7-21 [facility] ([facility] BUN/Creat 25 8-27 [facility] ([facility] Creatinine 0.6 mg/dL 0.7-1.5 Below low normal [facility] ( [facility] Total Protein 6.9 g/dL 6.3-8.2 [facility] ([facility] Albumin 4.0 g/dL 3.9-5.0 [facility] A/G Ratio 1.4 0.8-2.0 [facility] ([facility] Globulin 2.9 GM/DL 2.4-3.2 [facility] ([facility] Calcium 9.4 mg/dL 8.4-10.2 [facility] ([facility] Total Bili Laboratory test result 0.2-1.3 ME DENT ([facility] Sgot/Ast 15 U/L 5-40 [facility] ([facility] Alkaline Phos 94 U/L 38-126 [facility] ([facility] SGPT/Alt 23 U/L 7-56 [facility] ([facility] Anion Gap 8.0 mmol/L 8.0-16.0 [facility] ([facility] Age 55 yrs [facility] ([facility] Non-Aa GFR Laboratory test result ME DENT ([facility] Afr Amer GFR Laboratory test result [facility] ([facility] Male GFR Interprentation 20-49 yrs >60 mL/min Normal 50-59 yrs >56 mL/min Normal 60-69 yrs >49 mL/min Normal 70-79yrs >42 mL/min Normal 80 and above >35 mL/min Normal Female GFR Interpretation 20-39 yrs >60 mL/min Normal 40-49 yrs >58 mL/min Normal 50-59 yrs >51 mL/min Normal 60-69 yrs >45 mL/min Normal 70-79 yrs >39 mL/min Normal 80 and above >32 mL/min Normal ID Date Data Source [id number] 10/24/2020 10:47:00 AM EDT [facility] ([facility] Name Value Range Interpretation Code Description Data Jenn rce(s) Supporting Document(s) Lactate [Mass/volume] in Serum or Plasma 1.8 mmol/L 0.2-2.2 [facility] ([facility] ID Date Data Source [id number] 10/24/2020 11:42:[address] [facility] Name Value Range Interpretation Code Description Data Jenn rce(s) Supporting Document(s) CBC W/AUTOMATED DIFF [facility] COMPLETE BLOOD COUNT Leukocytes [#/volume] in Blood by Automated count 7.4 10^3/uL 4.2 - [address] [facility] Erythrocytes [#/volume] in Blood by Automated count 4.62 10^6/uL 4. 20 - 5.40 [facility] Hemoglobin [Mass/volume] in Blood 13.8 g/dL 12.0 - 16.0 [facility] Hematocrit [Volume Fraction] of Blood by Automated count 40.8 % 3 7.0 - 47.0 [facility] Erythrocyte mean corpuscular volume [Entitic volume] by Auto mated count 88.3 fL 81.0 - 101 [facility] Erythrocyte mean corpuscular hemoglobin [Entitic mass] by Automated count 29.9 pg 27.0 - 34.0 [facility] Erythrocyte mean corpuscular hemoglobin concentration [Mass/volume] by Automated count 33.8 g/dL 31.0 - 36.0 [facility] Erythrocyte distribution width [Ratio] by Automated count 12.4 % 11.5 - 14.5 [facility] Platelets [#/volume] in Blood by Automated count 255 10^3/uL 150 - [address] [facility] Platelet mean volume [Entitic volume] in Blood by Automated count 9.9 fL 7.4 - 10.4 [facility] Neutrophils/100 leukocytes in Blood by Automated count 68.0 % 37. 0 - 80.0 [facility] Lymphocytes/100 leukocytes in Blood by Manual count 22.0 % 25.0 - 40.[address] [facility] Monocytes/100 leukocytes in Blood by Automated count 7.2 % 3.0 - 8.0 [facility] Eosinophils/100 leukocytes in Blood by Automated count 1.8 % 0.0 - 7.0 [facility] Basophils/100 leukocytes in Blood by Automated count 0.7 % 0.0 - 2.5 [facility] %IG 0.3 % 0.0 - 0.0 [facility] %[facility] 0.0 % 0.0 - 0.0 [facility] Neutrophils [#/volume] in Blood by Automated count 5.04 10^3/uL 2.00 - 6.90 [facility] Lymphocytes [#/volume] in Blood by Automated count 1.63 10^3/uL 0.60 - 3.40 [facility] Monocytes [#/volume] in Blood by Automated count 0.53 10^3/uL 0.00 - 0.90 [facility] Eosinophils [#/volume] in Blood by Automated count 0.13 10^3/uL 0.00 - 0.70 [facility] Basophils [#/volume] in Blood by Automated count 0.05 10^3/uL 0.00 - 0.20 [facility] #IG 0.02 10^3/uL 0.00 - 0.10 [facility] #NRBC 0.00 10^3/uL 0.00 - 0.00 [facility] ospital MANUAL DIFF NOT INDICATED [facility] RBC MORPH NOT INDICATED [facility] spital ID Date Data Source [id number] 10/24/2020 11:27:[address] [facility] Name Value Range Interpretation Code Description Data Jenn rce(s) Supporting Document(s) COMPREHENSIVE METABOLIC PANEL [facility] COMPREHENSIVE METABOLIC PANEL Sodium [Moles/volume] in Serum or Plasma 135 mEq/L 134 - 153 [facility] Potassium [Moles/volume] in Serum or Plasma 3.6 mEq/L 3.6 - 5.0 [facility] Chloride [Moles/volume] in Serum or Plasma 102 mEq/L 98 - 107 [facility] Carbon dioxide, total [Moles/volume] in Serum or Plasma 25 MEQ/L 22 - 30 [facility] Glucose [Mass/volume] in Serum or Plasma 170 MG/DL 70 - [address] [facility] BUN 15 MG/DL 7 - 21 [facility] Creatinine [Mass/volume] in Serum or Plasma 0.6 MG/DL 0.7 - 1.[address] [facility] BUN/CREAT 25 8 - 27 [facility] Protein [Mass/volume] in Serum or Plasma 6.9 G/DL 6.3 - 8.2 [facility] Albumin [Mass/volume] in Serum or Plasma 4.0 G/DL 3.9 - 5.0 [facility] Globulin [Mass/volume] in Serum by calculation 2.9 GM/DL 2.4 - 3.2 [facility] A/G RATIO 1.4 0.8 - 2.0 [facility] Calcium [Mass/volume] in Serum or Plasma 9.4 MG/DL 8.4 - 10.2 [facility] Bilirubin.total [Mass/volume] in Serum or Plasma <0.7 MG/DL 0.2 - 1.3 [facility] Alkaline phosphatase [Enzymatic activity/volume] in Serum or Plasma 94 U/L 38 - 126 [facility] Aspartate aminotransferase [Enzymatic activity/volume] in Serum or Plasma 15 U/L 5 - 40 [facility] Alanine aminotransferase [Enzymatic activity/volume] in Seru m or Plasma 23 U/L 7 - 56 [facility] Anion gap 3 in Serum or Plasma 8.0 mmol/L 8.0 - 16.0 [facility] AGE [address] [facility] NON-AA GFR >60 mL/min [facility] ital AFR AMER GFR >60 mL/min [facility] sp[facility] Male GFR In terprentation 20-49 yrs >60 mL/min Normal 50-59 yrs >56 mL/min Normal 60-69 yrs >49 mL/min Normal 70-79yrs >42 mL/min Normal 80 and above >35 mL/min Normal Female GFR Interpretation 20-39 yrs >60 mL/min Normal 40-49 yrs >58 mL/min Normal 50-59 yrs >51 mL/min Normal 60-69 yrs >45 mL/min Normal 70-79 yrs >39 mL/min Normal 80 and above >32 mL/min Normal ID Date Data Source [id number] 10/24/2020 11:04:[address] [facility] Name Value Range Interpretation Code Description Data Jenn rce(s) Supporting Document(s) Lactate [Moles/volume] in Serum or Plasma 1.8 MMOL/L 0.2 - 2.2 [facility] ID Date Data Source [id number] 10/24/2020 10:30:00 AM EDT [facility] ([facility] Name Value Range Interpretation Code Description Data Jenn rce(s) Supporting Document(s) Urinalysis Laboratory test result ME DENT ([facility] SOURCE: Clean Catch Source Laboratory test result [facility] ([facility] SOURCE: Clean Catch Color Laboratory test result [facility] ([facility] SOURCE: Clean Catch Clarity Laboratory test result [facility] ([facility] SOURCE: Clean Catch Spec [place] 1.015 1.001-1.030 [facility] ([facility] SOURCE: Clean Catch pH 6 5-9 [facility] ([facility] SOURCE: Clean Catch Glucose Laboratory test result [facility] ([facility] SOURCE: Clean Catch Ketone Laboratory test result [facility] ([facility] SOURCE: Clean Catch Bilirubin Laboratory test result ME DENT ([facility] SOURCE: Clean Catch Nitrite Laboratory test result [facility] ([facility] SOURCE: Clean Catch Protein 15 [facility] ([facility] SOURCE: Clean Catch Blood 50 Abnormal (applies to non-numeric res ults) [facility] ([facility] SOURCE: Clean Catch Urobilinogen Laboratory test result [facility] ([facility] SOURCE: Clean Catch Leuk Est Laboratory test result [facility] ([facility] SOURCE: Clean Catch Microscopic Laboratory test result M EDENT ([facility] SOURCE: Clean Catch RBC Laboratory test result [facility] ([facility] SOURCE: Clean Catch WBC Laboratory test result [facility] ([facility] SOURCE: Clean Catch Bacteria Laboratory test result [facility] ([facility] SOURCE: Clean Catch Epithelial Laboratory test result Abnormal (applies to non -numeric results) [facility] ([facility] SOURCE: Clean Catch Amorph Sed Laboratory test result ME DENT ([facility] SOURCE: Clean Catch ID Date Data Source [id number] 10/24/2020 10:54:[address] [facility] Name Value Range Interpretation Code Description Data Jenn rce(s) Supporting Document(s) [facility]IS [facility] [place] S[facility] R [facility] COLOR yellow NORMAL: Yellow [facility] CLARITY clear NORMAL: Clear [facility] Specific gravity of Urine by Test strip 1.015 1.001 - 1.030 [facility] pH 6 5 - 9 [facility] Glucose [Mass/volume] in Urine by Test strip NORM NORMAL: Negat [facility] Bilirubin.total [Presence] in Urine by Test strip NEG NORMAL: Negative [facility] Ketones [Presence] in Urine by Test strip NEG NORMAL: Negative [facility] Protein [Mass/volume] in Urine by Test strip 15 NORMAL: Negat [facility] Nitrite [Presence] in Urine by Test strip NEG NORMAL: Negative [facility] BLOOD 50 NORMAL: Negative [facility] Leukocyte esterase [Presence] in Urine by Test strip NEG DYLAN L: Negative [facility] Urobilinogen [Mass/volume] in Urine by Test strip NOR less batool n 1.0 mg/dL [facility] MICROSCOPIC See Below [facility] ital WBC 0 - 1 NORMAL: NONE SEEN [facility] Erythrocytes [#/volume] in Urine by Test strip 0 - 1 NORMAL: NON E SEEN [facility] EPITHELIAL MODERATE NORMAL: NONE SEEN [facility] Bacteria [Presence] in Urine sediment by Light microscopy Tr shannan NORMAL: NONE SEEN [facility] Amorphous sediment [Presence] in Urine sediment by Light alf roscopy RARE NORMAL: NONE SEEN [facility] ID Date Data Source [id number] 07/29/2020 01:45:00 PM EST [facility] ([facility] Name Value Range Interpretation Code Description Data Jenn rce(s) Supporting Document(s) Laboratory test finding (navigational concept) Laboratory test result [facility] ([facility] Test: COVID-19 Nasal/Naspharynx Result: POSITIVE for 2019-nCoV Reference Units: Not detected NOTE: The COVID-19 assay is under Emergency Use Authorization(EUA) by the U.S. Food and Drug Administration. [facility] is designated as a high complexity laboratory by the Clinical Laboratory Improvement Amendments of 1988(CLIA) and is qualified to perform this test. ASSAY INFORMATION: Real Time RT-PCR ID Date Data Source [id number] 07/29/2020 12:00:00 AM EST [facility] Name Value Range Interpretation Code Description Data Jenn rce(s) Supporting Document(s) SARS-CoV-2 (COVID-19) RNA [Presence] in Respiratory specimen by BLESSING with probe detection Positive for 2019-nCoV [facility] This lab was ordered by [facility] and reported by [employer] ID Date Data Source [id number] 06/07/2020 03:04:00 PM EST [facility] ([facility] Name Value Range Interpretation Code Description Data Jenn rce(s) Supporting Document(s) Tissue transglutaminase IgA Ab [Units/volume] in Serum Labor atory test result 0-3 Normal (applies to non-numeric results) [facility] ([facility] Negative 0 - 3 Weak Positive 4 - 10 Positive >10 . Tissue Transglutaminase (tTG) has been identified as the endomysial antigen. Studies have demonstr- ated that endomysial IgA antibodies have over 99% specificity for gluten sensitive enteropathy. Performed at: RN - [facility] [address] [id number] [employer] Punch Machine Operator: Kenna Hancock MD, Phone: [phone] ID Date Data Source [id number] 06/07/2020 03:04:00 PM EST [facility] ([facility] Name Value Range Interpretation Code Description Data Jenn rce(s) Supporting Document(s) Thyroid Stimulating Hormone 3.480 uIU/ML 0.358-3.740 Norm al (applies to non- numeric results) [facility] ([facility] Free T4 1.22 ng/dL 0.76-1.46 Normal (applies to non-numeric resul ts) [facility] ([facility] ID Date Data Source [id number] 06/07/2020 03:04:00 PM EST [facility] ([facility] Name Value Range Interpretation Code Description Data Jenn rce(s) Supporting Document(s) IgA [Mass/volume] in Serum or Plasma 152.0 mg/dL 70-400 Normal (applies to non- numeric results) [facility] ID Date Data Source [id number] 06/07/2020 03:04:00 PM [facility] ([facility]) Name Value Range Interpretation Code Description Data Jenn rce(s) Supporting Document(s) Thyroid Stimulating Hormone 3.480 uIU/ML 0.358-3.740 Norm al (applies to non- numeric results) [facility] ([facility]) Free T4 1.22 ng/dL 0.76-1.46 Normal (applies to non-numeric resul ts) [facility]) ID Date Data Source [id number] 06/07/2020 03:04:00 PM [facility] ([facility]) Name Value Range Interpretation Code Description Data Jenn rce(s) Supporting Document(s) Tissue transglutaminase IgA Ab [Units/volume] in Serum Labor atory test result 0-3 Normal (applies to non-numeric results) [facility]) Negative 0 - 3 Weak Positive 4 - 10 Positive >10 . Tissue Transglutaminase (tTG) has been identified as the endomysial antigen. Studies have demonstr- ated that endomysial IgA antibodies have over 99% specificity for gluten sensitive enteropathy. Performed at: RN - [facility] [address] [id number] [employer]unch Machine Operator: Kenna Hancock MD, Phone: [phone] IgA [Mass/volume] in Serum or Plasma 152.0 mg/dL 70-400 Normal (applies to non- numeric results) [facility]) ID Date Data Source [id number] 03/26/2020 02:45:00 PM EDT [facility] ([facility] Name Value Range Interpretation Code Description Data Jenn rce(s) Supporting Document(s) Erythrocyte sedimentation rate by Westergren method 23 mm/hr 0-40 [facility] ([facility] ID Date Data Source [id number] 03/26/2020 02:45:00 PM EDT [facility] ([facility] Name Value Range Interpretation Code Description Data Jenn rce(s) Supporting Document(s) Leukocytes [#/volume] in Blood by Automated count 6.3 x10E3/uL 3.4-10 .8 [facility] ([facility] Hemoglobin [Mass/volume] in Blood 14.2 g/dL 11.1-15.9 [facility] ([facility] Erythrocytes [#/volume] in Blood by Automated count 4.80 x10E6/uL 3.7 7-5.28 [facility] ([facility] Erythrocyte mean corpuscular volume [Entitic volume] by Auto mated count 88 fL 79-97 [facility] ([facility] Hematocrit [Volume Fraction] of Blood by Automated count 42.2 % 3 4.0-46.6 [facility] ([facility] Erythrocyte mean corpuscular hemoglobin [Entitic mass] by Automated count 29.6 pg 26.6-33.0 [facility] [place] [facility] Erythrocyte mean corpuscular hemoglobin concentration [Mass/volume] by Automated count 33.6 g/dL 31.5-35.7 [facility] ([facility] Erythrocyte distribution width [Ratio] by Automated count 12.7 % 11.7-15.4 [facility] ([facility] Platelets [#/volume] in Blood by Automated count 291 x10E3/uL 150-450 [facility] ([facility] Neutrophils 57 % [facility] ([facility] Lymphs 28 % [facility] Eosinophils/100 leukocytes in Blood by Automated count 3 % [facility] ([facility] Monocytes/100 leukocytes in Blood by Automated count 11 % [facility] ([facility] Immature cells [#/volume] in Blood Laboratory test result [facility] ([facility] Neutrophils [#/volume] in Blood by Automated count 3.5 x10E3/uL 1.4-7 .0 [facility] ([facility] Basophils/100 leukocytes in Blood by Automated count 1 % [facility] ([facility] Monocytes [#/volume] in Blood 0.7 x10E3/uL 0.1-0.9 [facility] ([facility] Lymphocytes [#/volume] in Blood 1.8 x10E3/uL 0.7-3.1 [facility] ([facility] Basophils [#/volume] in Blood by Automated count 0.1 x10E3/uL 0.0-0.2 [facility] ([facility] Eosinophils [#/volume] in Blood by Automated count 0.2 x10E3/uL 0.0-0 .4 [facility] ([facility] Immature granulocytes [#/volume] in Blood by Automated count 0.0 x10E3/uL 0.0-0.1 [facility] Immature granulocytes/100 leukocytes in Blood by Automated count 0 % [facility] ([facility] Nucleated erythrocytes/100 leukocytes [Ratio] in Blood by Automated count Laboratory test result [facility] ([facility] Morphology [Interpretation] in Blood Narrative Laboratory test result [facility] ([facility] Procedure Social History No Information Vital Signs ID Date Data Source [id number] Name Value Range Interpretation Code Description Data Source(s) Diastolic blood pressure 84 mm[Hg] 84 mm[Hg] [facility] ([facility] Systolic blood pressure 128 mm[Hg] 128 mm[Hg] M EDENT ([facility] Heart rate 76 /min 76 /min [facility] ([facility] Respiratory rate 16 /min 16 /min [facility] ( [facility] Body temperature 98.0 [degF] 98.0 [degF] [facility] ([facility] Body height 62 [in_i] 62 [in_i] [facility] ([facility] 5'2" Body weight 218.00 [lb_av] 218.00 [lb_av] MED[facility] T ([facility] [place] body weight 110 [lb_av] 110 [lb_av] [facility] T ([facility] Body mass index (BMI) [Ratio] 39.9 kg/m2 39.9 k g/m2 [facility] ([facility] Oxygen saturation in Arterial blood by Pulse oximetry 97 % 97 % [facility] ([facility] Body temperature 97.1 [degF] 97.1 [degF] [facility] ([facility] Body height 61.5 [in_i] 61.5 [in_i] [facility] ([facility] 5'1.50" Body weight 215.12 [lb_av] 215.12 [lb_av] MED[facility] T ([facility]) Body mass index (BMI) [Ratio] 40.0 kg/m2 40.0 k g/m2 [facility] ([facility]) Body mass index (BMI) [Ratio] 40.1 kg/m2 40.1 k g/m2 [facility] ([facility] Oxygen saturation in Arterial blood by Pulse oximetry 98 % 98 % [facility] ([facility] Body temperature 96.5 [degF] 96.5 [degF] [facility] ([facility] Heart rate 60 /min 60 /min [facility] ([facility] Respiratory rate 16 /min 16 /min [facility] ( [facility] Diastolic blood pressure 84 mm[Hg] 84 mm[Hg] [facility] ([facility] Body height 62 [in_i] 62 [in_i] [facility] ([facility] 5'2" Body weight 219.00 [lb_av] 219.00 [lb_av] MED[facility] T ([facility] [place] body weight 110 [lb_av] 110 [lb_av] [facility] T ([facility] Systolic blood pressure 114 mm[Hg] 114 mm[Hg] M EDENT ([facility] Body temperature 97.1 [degF] 97.1 [degF] [facility] ([facility] Body height 62.5 [in_i] 62.5 [in_i] [facility] ([facility] 5'2.50" Body weight 216.50 [lb_av] 216.50 [lb_av] MEDEN T ([facility] Body mass index (BMI) [Ratio] 39.0 kg/m2 39.0 k g/m2 [facility] ([facility] Body temperature 96.2 [degF] 96.2 [degF] [facility] ([facility] Body height 63 [in_i] 63 [in_i] [facility] ([facility] 5'3" Body weight 210.00 [lb_av] 210.00 [lb_av] MEDEN T ([facility] Body mass index (BMI) [Ratio] 37.2 kg/m2 37.2 k g/m2 [facility] [place] body weight 115 [lb_av] 115 [lb_av] MEDEN T ([facility], ) Systolic blood pressure 138 mm[Hg] 138 mm[Hg] [facility] Diastolic blood pressure 82 mm[Hg] 82 mm[Hg] [facility] Body height 63 [in_i] 63 [in_i] [facility] ([facility], ) 5'3" Body weight 212.00 [lb_av] 212.00 [lb_av] MEDEN T ([facility], ) Body mass index (BMI) [Ratio] 37.6 kg/m2 37.6 k g/m2 [facility] ([facility], ) Body weight 96.163 kg 96.163 kg [facility] ([facility], ) Body surface area Derived from formula 1.98 m2 1.98 m2 [facility] ([facility], ) Systolic blood pressure 106 mm[Hg] 106 mm[Hg] M RACHAEL ([facility] Diastolic blood pressure 68 mm[Hg] 68 mm[Hg] CINTHIA ([facility] Body temperature 98.5 [degF] 98.5 [degF] MEDMARIO ([facility] Heart rate 82 /min 82 /min CINTHIA ([facility] Respiratory rate 16 /min 16 /min CINTHIA ( [facility] Body height 62 [in_i] 62 [in_i] CINTHIA ([facility] 5'2" Body weight 209.00 [lb_av] 209.00 [lb_av] MEDEN T ([facility] [place] body weight 110 [lb_av] 110 [lb_av] MED[facility] T ([facility] Body mass index (BMI) [Ratio] 38.2 kg/m2 38.2 k g/m2 CITNHIA ([facility] Oxygen saturation in Arterial blood by Pulse oximetry 97 % 97 % CINTHIA ([facility]
[2021-05-08 04:04] LABS: BASO % 0.5 % (0.0-1.0); EOS # 0.3 10^3/uL (0.0-0.5); HEMATOCRIT 43.8 % (36.0-47.0); HEMOGLOBIN 14.3 g/dl (12.0-15.5); LYMPH % 23.5 % (24.0-44.0); MEAN CORPUSCULAR HEMOGLOBIN 28.9 pg (27.0-33.0); MEAN CORPUSCULAR HGB CONC 32.6 g/dl (32.0-36.5); MEAN CORPUSCULAR VOLUME 88.7 fl (80.0-96.0); MONO # 0.8 10^3/uL (0.0-0.8); NEUTROPHILS # 5.2 10^3/uL (1.5-8.5); NEUTROPHILS % 62.5 % (36.0-66.0); PLATELET COUNT, AUTOMATED 266 10^3/uL (150-450); RED BLOOD COUNT 4.94 10^6/uL (4.00-5.40); WHITE BLOOD COUNT 8.3 10^3/uL (4.0-10.0)
[2021-05-08] MEDS ORDERED: ASPIRIN 81 MG CHEW TABLET PO ONE (04:05)
[2021-05-08] MEDS ORDERED: ONDANSETRON 4MG/2ML VIAL IV ONE (04:05)
[2021-05-08] MEDS: NITROGLYCERIN 0.4 MG SUBL TABLET SL PRN ×2 (04:21→05:15)
[2021-05-08 04:28] LABS: BLOOD UREA NITROGEN 18 MG/DL (7-18); CALCIUM LEVEL 8.9 MG/DL (8.5-10.1); CARBON DIOXIDE LEVEL 25 MEQ/L (21-32); CHLORIDE LEVEL 107 MEQ/L (98-107); CREATININE FOR GFR 0.85 MG/DL (0.55-1.30); GLOMERULAR FILTRATION RATE > 60.0 (>51); GLUCOSE, FASTING 137 MG/DL (70-100); POTASSIUM SERUM 3.9 MEQ/L (3.5-5.1); SODIUM LEVEL 140 MEQ/L (136-145)
--- OUTSIDE RECORDS SUMMARY | 2021-05-08 04:48 | CCD ---
Author Author [facility] Organization [facility] Address Unknown Phone Unavailable Care Team Providers Care Mirror Framer Name Role Phone SKIP, MARIETTA FARIA Unavailable [...] M Felicity PA Unavailable Unavailable Bony, D Aemon PA Unavailable Unavailable Bony, D Eamon PA [...] D Eamon PA Unavailable Unavailable Bony, D Eaomn PA Unavailable Unavailable Bony, D Eamon PA [...] Unavailable Bony, D Eamon PA Unavailable Unavailable Bnoy, D Eamon PA Unavailable Unavailable Bony, D [...] MD Unavailable Unavailable VanloisamPapito MD Unavailable Unavailable VanlosiamPapito MD Unavailable Unavailable VaneendanishamPapito MD Unavailable Unavailable [...] law may result in a fine or mcc sentence or both. A general authorization for the release of medical or other information is NOT sufficient authorization for further disc losure. Family History Family Member Name Family Member Gender Family Member Status Date o f Status Description Data Source(s) Unknown Female Problem [facility] ([facility]) Unknown Female Problem [facility] ([facility]) Encounters Encounter Providers Location Date Indications Data Source(s ) Outpatient Attender: Eamon PARRA [place] Office 04:00:00 PM EDT [facility] ([facility] Emergency Attender: DYLAN THRASHER MDConsultant: Eamon PARRA 10/24/2020 10:31:00 AM EDT - 10/24/2020 12:45:00 PM EDT [facility] Patient discharged. Outpatient Attender: Papito Garcia MD Physical Therap y 10/10/2020 01:45:00 PM EDT [facility] ([facility]) Outpatient Attender: Eamon PARRA [place] [facility] 03:15:00 PM EDT [facility] ([facility] Outpatient Attender: Papito Garcia MD Physical Therap y 08/13/2020 08:30:00 AM EST [facility] ([facility]) OFFICE OUTPATIENT NEW 30 MINUTES Attender: EAMON PARRA Physical Therapy 07/18/2020 08:30:00 AM EST [facility] ([facility]) Outpatient Attender: MARIETTA Rodríguez/Jose/Adrien/Jackson dl 06/04/2020 10:30:00 AM EST [facility] ([facility] Outpatient Attender: Felicity PARRA [facility] ce 03/26/2020 02:00:00 PM EDT [facility] ([facility] Immunizations Vaccine Date Status Description Data Source(s) COVID-19 VACCINE Pfizer 03/19/2021 12:00:00 AM EDT completed WiN MSSIIS Vaccine Series Complete: YESThis Data wa s Submitted to [facility] Via [employer]. COVID-19 VACC, MRNA(PFIZER)/PF 03/19/2021 12:00:00 AM EDT completed [facility] COVID-19 VACCINE Pfizer 02/26/2021 12:00:00 AM EDT completed NYSIIS Vaccine Series Complete: NOThis Data was Submitted to [facility] Via [employer]. COVID-19 VACC, MRNA(PFIZER)/PF 02/26/2021 12:00:00 AM EDT completed [facility] Medications Medication Brand Name Start Date Product Form Dose Route Admi nistrative Instructions Pharmacy Instructions Status Indications Reaction Description Data Source(s) Mupirocin 0.02 MG/MG Topical Ointment Mupirocin 09/19/2020 12:00:00 AM EST completed [facility] ([facility] chlorhexidine gluconate 40 MG/ML Medicated Liquid Soap [Hibi clens] Hibiclens 09/19/2020 12:00:00 AM EST completed [facility] ([facility]) Suprep Bowel Prep Kit Suprep Bowel Prep Kit 06/04/2020 12:00:00 AM EST active [facility] ([facility], ) Dicyclomine Hydrochloride 10 MG Oral Capsule Dicyclomine HCL 06/04/2020 12:00:00 AM EST ORAL active MED[facility] ([facility], ) Magnesium Hydroxide 80 MG/ML Oral Suspension Milk Of Magnesi a 06/04/2020 12:00:00 AM EST ORAL active M EDENT ([facility], ) Bifidobacterium Infantis 4 MG Oral Capsule [Align] Align 03/26/2020 12:00:00 AM EDT ORAL active [facility] ([facility] Insurance Providers Payer name Policy type / Coverage type Policy ID Covered libertarian ID Covered libertarian's relationship to delgadillo Policy Delgadillo Plan Information Ghi/Emblem HLTH (pr) Medigap Part B [id number] Family Depende nt [place] [id number] 18 [id number] [place] O [id number] S [id number] SELF PAY ONLY [id number] SP [id number] SELF PAY ONLY UNAVAILABLE UNAV AILABLE Self Pay P na S na SELF PAY UNAVAILABLE UNAVAILA BLE Ghi FHP-(DO Not Use) Commercial [id number] Self SELF PAY O [id number] S [id number] [facility] [id number] SP [id number] BRITTANY [id number] SP [id number] Problems, Conditions, and Diagnoses Code Display Name Description Problem Type Effective Dates Data Source(s) Y929 [address] or not applicable Unspecified place or not applicable Diagnosis 10/24/2020 10:31:00 AM [facility] [id number] Exposure to other specified factors, ini tial encounter Exposure to other specified factors, initial encounter Diagnosis 10/24/2020 10:31:00 AM [facility] P64302 Personal history of urinary calculi Personal his tory of urinary calculi Diagnosis 10/24/2020 10:31:00 AM [facility] G60147 Nicotine dependence, cigarettes, uncompl icated Nicotine dependence, cigarettes, uncomplicated Diagnosis 10/24/2020 10:31:00 AM [facility] K439 Ventral hernia without obstruction or ga ngrene Ventral hernia without obstruction or gangrene Diagnosis 10/24/2020 10:31:00 AM [facility] K429 Umbilical hernia without obstruction or gangrene Umbilical hernia without obstruction or gangrene Diagnosis 10/24/2020 10:31:00 AM [facility] I10 Essential (primary) hypertension Essential (primary) h ypertension Diagnosis 10/24/2020 10:31:00 AM [facility] E039 Hypothyroidism, unspecified Hypothyroidism, unspecifie d Diagnosis 10/24/2020 10:31:00 AM [facility] [id number] Strain of muscle, fascia and tendon of l ower back, initial encounter Strain of muscle, fascia and tendon of lower back, initial encounter Diagnosis 10/24/2020 10:31:00 AM [facility] M545 Low back pain Low back pain Diagnosis 10/24/2020 10:31:00 AM [facility] Surgeries/Procedures Procedure Description Date Indications Data Source(s) OFFICE OUTPATIENT VISIT 25 MINUTES 03/10/2021 12:00:00 AM EDT [facility] ([facility] Colonoscopy Flexible Proximal To Splenic Flexure W/Biopsy Si ngle/ 12/20/2020 12:00:00 AM EDT [facility] ([facility] Colonoscopy W/ Poly 12/20/2020 12:00:00 AM EDT [facility] ([facility], ) RADEX SHOULDER COMPLETE MINIMUM 2 VIEWS 10/10/2020 12: 00:00 AM EDT [facility] ([facility]) OFFICE OUTPATIENT VISIT 25 MINUTES 09/26/2020 12:00:00 AM EDT [facility] ([facility] ARTHROCENTESIS ASPIR&/INJECTION MAJOR JT/BURSA 021 12:00:00 AM EST [facility] ([facility]) RADIOLOGIC EXAM KNEE COMPLETE 4/MORE VIEWS 07/18/2020 12:00:00 AM EST [facility] ([facility]) RADIOLOGIC EXAM KNEE COMPLETE 4/MORE VIEWS 07/18/2020 12:00:00 AM EST [facility] ([facility]) RADIOLOGIC EXAM KNEE COMPLETE 4/MORE VIEWS 07/18/2020 12:00:00 AM EST [facility] ([facility]) Results ID Date Data Source [id number] 12/20/2020 12:59:00 PM EDT [facility] Name Value Range Interpretation Code Description Data Jenn rce(s) Supporting Document(s) Surgical pathology study Laboratory test result [facility] ([facility]) FINAL DIAGNOSIS A-Ascending colon polyps, [...] MD 12/23/2020 1020 ID Date Data Source [id number] 12/15/2020 09:05:00 AM EDT [facility] Name Value Range Interpretation Code Description Data Jenn rce(s) Supporting Document(s) SARS-CoV-2 (COVID-19) RNA [Presence] in Respiratory specimen by BLESSING with probe detection Not Detected [facility] This lab was ordered by [facility] and reported by [employer]. 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 ER Per protocol; Dylan Ely MDCBC w Diff STAT 10:34 10/24/2020 10:38 Dylan Haas MD; Billy RNCMP STAT 10:34 10/24/2020 10:38 Dylan Haas MD; Billy RNLactic Acid STAT 10:34 10/24/2020 10:38 Dylan Haas MD; Billy RNDIAGNOSTIC STUDY ORDERSOrder Description Priority Entered Acknowledged InitialedCT ABD PEL W/O STAT 10:34 10/24/2020 11:04 BurnhamOral W/O IV Dylan Thrasher MD; 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, Raji Parra Tech1(Oxygen?(No))(IV?(No)) Reason for Study: left flank painMEDICATION/IV/DRIP/FLUID ORDERSOrder Description Priority Entered Acknowledged InitialedGENERAL ORDERSOrder Description Priority Entered Acknowledged Initialed[Electronically signed by Phill Cervantes RN (12:45 10/24/2020)][Electronically signed by Dylan Thrasher MD (22:45 10/24/2020)][Electronically locked by Phill Cervantes RN (12:45 10/24/2020)] Name Value Range Interpretation Code Description Data Jenn rce(s) Supporting Document(s) ID Date Data Source [id number] 10/24/2020 10:31:00 AM EDT [facility] 1 Medication Reconciliation Report [facility] Emergency Department [address] [place] [address] Phone #: ext- [phone] 10/24/2020 10:09 [id number] Sex: F : 1965 Age: 55yWeight: 97.5 [...] rce(s) Supporting Document(s) ID Date Data Source [id number] 10/24/2020 10:31:00 AM EDT [facility] 1 Medication Administration Record [facility] Emergency Department [address] [place] [address] Phone #: ext- [phone] 10/24/2020 10:09 Patient: NIR KENNEDY [facility]#: [id number] Sex: F : 1965 Age: 55yWeight: 97.5 kgHeight/Length: 62 inBMI: 39.4ALLERGIES: IV Contrast, CephalosporinsDate/Time Medication Administered Medication Ordered Name Value Range Interpretation Code Description Data Jenn rce(s) Supporting Document(s) ID Date Data Source [id number] 10/24/2020 10:31:00 AM EDT [facility] 1 General Instructions [facility] Emergency Department [address] [place] [address] Phone #: ext- [phone] 10/24/2020 10:09 Patient: [...] Pain (Acute or Chronic) 2 General Instructions [facility] Emergency Department [address] [place] [address] Phone #: ext- [phone] 10/24/2020 10:09 Patient: [...] illness. Mechanical problems include: 3 General Instructions [facility] Emergen cy Department [address] [place] [address] Phone #: ext- [phone] 10/24/2020 10:09 Patient: [...] painful area for 20 4 General Instructions [facility] Emergency Department [address] [place] [address] Phone #: ext- [phone] 10/24/2020 10:09 [id number] Sex: F : 1965 Age: 55y minutes [...] or are takingother medicines. You may use tbhp-mzx-txluear medicine as directed on the bottle to [...] to seek medical advice 5 General Instructions [facility] Emergency Department [address] [place] [address] Phone #: ext- [phone] 10/24/2020 10:09 Patient: NIR KENNEDY Sex: F : 1965 Age: 55yCall your healthcare provider right away if any of these occur: Pain becomes worse or spreads to your legs Weakness or numbness in one or both legs Numbness in the groin or genital area 2019 [employer]. [address] [place] [address]. All rights reserved. This information is not intended as asubstitute for professional medical care. Always follow your healthcare professional's instructions. You have been given the following additional information: Back Pain (Acute or Chronic) Limit lifting. No strenuous activity. Return to work tomorrow.(Electronically signed by Dylan Thrasher MD 10/24/2020 22:45) Name Value Range Interpretation Code Description Data Jenn rce(s) Supporting Document(s) ID Date Data Source [id number] 10/24/2020 10:31:00 AM EDT [facility] 1 Clinical Report - Nurses [facility] Emergency Department [address] [place] [address] Phone #: ext- [phone] 10/24/2020 10:09 Patient: [...] days). The patient has had flank pain.Treatment LENS MATCHER:None.SEPSIS SCREEN: SIRS SCREEN NEGATIVE. SEPSIS SCREEN NEGATIVE. [...] Foss RN. 2 Clinical Report - Nurses [facility] Emergency Department [address] [place] [address] Phone #: ext- [phone] 10/24/2020 10:09 Patient: [...] Foss RN. 3 Clinical Report - Nurses [facility] Emergency Department [address] [place] [address] Phone #: plp- [phone] 10/24/2020 10:09 [id number] Sex: F : 1965 Age: 55yDISPOSITION / DISCHARGE Condition at departure: improved and stable. Discharge instructions provided and reviewed with the patient. Activity restrictions (light lifting) reviewed. Work note given. Patient verbalized understanding. Written instructions provided in Finnish. The patient was discharged by the physician. She was discharged home and accompanied by operations manager station. She left ambulatory and via private vehicle. Bank Reconciliator driving. --12:45 10/24/20 Phill Cervantes RN 12:44 10/24/20. BP: 114/66. MAP: 82. HR: 71. RR: 16. O2 saturation: 95%. Pain level now: 11/18. --12:45 10/24/20 Phill Cervantes RN.Locked/Released at 10/24/2020 12:45 by Phill Cervantes RN Name Value Range Interpretation Code Description Data Jenn rce(s) Supporting Document(s) ID Date Data Source [id number] 10/24/2020 10:31:00 AM EDT [facility] 1 Clinical Report - Physicians/Mid Levels [facility] Emergency Department [address] [place] [address] Phone #: ext- [phone] 10/24/2020 10:09 [facility]: [id number] Sex: F : 1965 Age: 55y Arrived- [...] daily. 2 Clinical Report - Physicians/Mid Levels [facility] Emergency Department [address] [place] [address] Phone #: ext- [phone] 10/24/2020 10:09 Patient: NIR KENNEDY [facility]#: [id number] Sex: F : 1965 Age: 55y Levothyroxine [...] 36.0) 3 Clinical Report - Physicians/Mid Levels [facility] Emergency Department [address] [place] [address] Phone #: ext- [phone] 10/24/2020 10:09 Patient: [facility]ED[id number] Sex: F : 1965 Age: 55y RDW [...] Male GFR Interprentation 20-49 yrs >60 mL/min Uafctw31-54 yrs >56 mL/min Normal 60-69 yrs >49 mL/min Normal 70-79yrs>42 mL/min Normal 80 and above >35 mL/min Normal Female GFRInterpretation 20-39 yrs >60 mL/min Normal 40-49 yrs >58 mL/minNormal 50-59 yrs >51 mL/min Normal 60-69 yrs >45 mL/min Mvcxhf46-73 yrs >39 mL/min Normal 80 and above >32 mL/min NormalLactic Acid: (DEEPAK: 10/24/2020 10:47) ( MsgRcvd 10/24/2020 11:08) Final results Test Result Flag Units (Reference) LACTIC ACID 1.8 MMOL/L (0.2 - 2.2)CT ABD PEL W/O Oral W/O IV Contrast: (DEEPAK: 10/24/2020 10:34) ( MsgRcvd 10/24/2020 15:31)Final results 4 Clinical Report - Physicians/Mid Levels [facility] Emergency Department [address] [place] [address] Phone # : ext- [phone] 10/24/2020 10:09 Patient: NIR KENNEDY Sex: F : 1965 Age: 55yExamCT ABD //T// PELV W/O ORAL W/O IV [facility] [address] [place] [address] PHONE: [phone] FAX: [phone] .................. : MARCIA Cobos Acct Number.................. : [id number]. ................. : TR-07 MR Number ................... : [id number] type ............. : E/R Discharge Date......... ... : 10/24/20Admit Date ......... : 10/24/20 Admit Phys .................... : COONEYNORMDate of ....... : 1965 Family Phys ................... : BONY MICPhone .................. : [phone] Age ..................... ........... : 55Film# .................. .:[id number] Sex ................................. : FUnsigned transcriptions are preliminary [...] techniques.CT dose 1639.9 mGycm[address] [place], [place] [address]PHONE: [phone] FAX: [phone] .................. : MARCIA Cobos Acct Number.................. : [id number] Clinical Report - Physicians/Mid Levels [facility] Emergency Department [address] [place] [address] Phone #: ext- [phone] 10/24/2020 10:09 Patient: NIR KENNEDY Sex: F : 1965 Age: 55y ROOM. ................. : TR- MR Number ................... : [id number] Stay type ............. : E/R Discharge Date......... ... : 10/24/20 Admit Date ......... : 10/24/20 Admit Phys .................... : COONEYNORM Date of ....... : 1965 Family Phys ................... : [employer] Phone .................. : [phone] Age ................................ : 55 Film# .................. .:[id number] Sex ................................. : F Unsigned transcriptions are preliminary reports and do not represent a medical or legal document CT ABD Reason(s): left flank pain Examination dictated by AIDA Holder. Examination was reviewed with Lilia Mckay MD, radiologist at the time of this dictation. Electronically Reviewed and Signed By LILIA MCKAY MD , 10/24/20 15:31, [facility] Transcribe Initials: SSR, Transcribe Date: 10/24/20 14:11, Dictation Date: Copy for: EMERGENCY DEPT via [facility] Copy for: 710 MED REC DISCHARGED Page 2 [id number]: (DEEPAK: 10/24/2020 10:30) ( MsgRcvd 10/24/2020 11:07) [...] NONE 6 Clinical Report - Physicians/Mid Levels [facility] Emergency Department [address] [place] [address] Phone #: ext- [phone] 10/24/2020 10:09 Patient: [id number] Sex: F : 1965 Age: 55y.PROGRESS AND [...] patient. 7 Clinical Report - Physicians/Mid Levels [facility] Emergency Department [address] [place] [address] Phone #: ext- [phone] 10/24/2020 10:09 Patient: NIR KENNEDY Sex: F : 1965 Age: 55y(Electronically signed by Dylan Thrasher MD 10/24/2020 22:45) Name Value Range Interpretation Code Description Data Jenn rce(s) Supporting Document(s) ID Date Data Source [id number] 10/24/2020 03:31:00 [place] [address] PHONE: [phone] FAX: [phone] Name .................. : MARCIA Cobos Acct Number.................. : [id number] ROOM. ................. : TR- MR Number ................... : [id number] Stay type ............. : E/R Discharge Date......... ... : 10/24/20 Admit Date ....... .. : 10/24/20 Admit Phys .................... : COONEYNORM Date of ....... : 1965 Family Phys ................... : [facility] Phone .................. : [phone] Age ................................ : 55 Film# .................. .:[id number] Sex ................................. : F Unsigned transcriptions are preliminary reports and do not represent a medical or legal document CT ABD & PELV W/O ORAL W/O IV [id number] COMPLETE:10/24/20 11:03 MICHAELA 8852 Reason(s): left flank [...] dose 1639.9 mGycm. Page 1 of 2 [facility] [address] [place] [address] PHONE: [phone] FAX: [phone] Name .................. : MARCIA Cobos Acct Number.................. : [id number] ROOM. ................. : TR-07 MR Number ................... : [id number] Stay type ............. : E/R Discharge Date......... ... : 10/24/20 Admit Date ......... : 10/24/20 Admit Phys .................... : COONEYNORM Date of ....... : 1965 Family Phys ................... : BONY PEREZ Phone .................. : [phone] Age ................................ : 55 Film# .................. .:[id number] Sex ................................. : F Unsigned transcriptions are preliminary reports and do not represent a medical or legal document CT ABD & PELV W/O ORAL W/O IV [id number] COMPLETE:10/24/20 11:03 MICHAELA 8852 Reason(s): left flank pain Examination dictated by AIDA Holder. Examination was reviewed with Lilia Mckay MD, radiologist at the time of this dictation. Electronically Reviewed and Signed By LILIA MCKAY MD , 10/24/20 15:31, [facility] Transcribe Initials: SSR, Transcribe Date: 10/24/20 14:11, Dictation Date: Copy for: EMERGENCY DEPT via [facility] Copy for: 710 MED REC DISCHARGED Page 2 of 2 Name Value Range Interpretation Code Description Data Jenn rce(s) Supporting Document(s) ID Date Data Source [id number] 10/24/2020 10:47:00 AM EDT [facility] ([facility] Name Value Range Interpretation Code Description Data Jenn rce(s) Supporting Document(s) CBC W/Automated Diff Laboratory test result [facility] ([facility] COMPLETE BLOOD COUNT RBC 4.62 10^6/uL 4.20-5.40 [facility] ([facility] WBC 7.4 10^3/uL [...] normal [facility] ( [facility] Dewey 7.2 % 3.0-8.0 [facility] Eos 1.8 % 0.0-7.0 [facility] Baso 0.7 % 0.0-2.5 [facility] %Ig 0.3 % 0.0-0.0 Above high normal [facility] %NRBC 0.0 % 0.0-0.0 [facility] #Lymph 1.63 10^3/uL 0.60-3.40 [facility] #Dewey 0.53 10^3/uL 0.00-0.90 [facility] ([facility] [...] Manual Diff Laboratory test result M RACHAEL ([facility] RBC Morph Laboratory test result ME MARGO ([facility] ID Date Data Source [id number] 10/24/2020 10:47:00 AM EDT [facility] ([facility] Name Value Range Interpretation Code Description Data Jenn rce(s) Supporting Document(s) Comprehensive [facility]abo Laboratory test result [facility] ([facility] COMPREHENSIVE METABOLIC PANEL Potassium 3.6 meq/L 3.6-5.0 [facility] Sodium 135 meq/L 134-153 [facility] ([facility] Chloride 102 meq/L 98-107 [facility] ([facility] Co2 25 meq/L 22-30 [facility] ([facility] Glucose 170 mg/dL 70-99 Above high normal [facility] ([facility] BUN 15 mg/dL 7-21 [facility] ([facility] BUN/Creat 25 8-27 [facility] ([facility] Creatinine 0.6 mg/dL 0.7-1.5 Below low normal [facility] ( [facility] Total Protein 6.9 g/dL 6.3-8.2 [facility] ([facility] Albumin 4.0 g/dL 3.9-5.0 [facility] A/G Ratio 1.4 0.8-2.0 [facility] ([facility] Globulin 2.9 GM/DL 2.4-3.2 [facility] ([facility] Calcium 9.4 mg/dL 8.4-10.2 [facility] ([facility] Total Bili Laboratory test result 0.2-1.3 ME DENT ([facility] Sgot/Ast 15 U/L 5-40 [facility] ([facility] Alkaline Phos 94 U/L 38-126 [facility] ([facility] SGPT/Alt 23 U/L 7-56 [facility] ([facility] Anion Gap 8.0 mmol/L 8.0-16.0 [facility] ([facility] Age 55 yrs [facility] ([facility] Non-Aa GFR Laboratory test result ME DENT ([facility] [facility] Afr Amer GFR Laboratory test result MEDENT ([facility] Male GFR Interprentation 20-49 yrs >60 [...] >32 mL/min Normal ID Date Data Source [id number] 10/24/2020 10:47:00 AM EDT MEDENT ([facility] Name Value Range Interpretation Code Description Data Jenn rce(s) Supporting Document(s) Lactate [Mass/volume] in Serum or Plasma 1.8 mmol/L 0.2-2.2 MEDENT ([facility] ID Date Data Source [id number] 10/24/2020 11:42:00 AM EDT [facility] Name Value Range Interpretation Code Description Data Jenn rce(s) Supporting Document(s) CBC W/AUTOMATED DIFF [facility] COMPLETE BLOOD COUNT Leukocytes [#/volume] in Blood by Automated count 7.4 10^3/uL 4.2 - 1 1.0 [facility] Erythrocytes [#/volume] in Blood by Automated count 4.62 10^6/uL 4. 20 - 5.40 [facility] Hemoglobin [Mass/volume] in Blood 13.8 g/dL 12.0 - 16.0 [facility] Hematocrit [Volume Fraction] of Blood by Automated count 40.8 % 3 7.0 - 47.0 [facility] Erythrocyte mean corpuscular volume [Entitic volume] by Auto mated count 88.3 fL 81.0 - 101 [facility] Erythrocyte mean corpuscular hemoglobin [Entitic mass] by Automated count 29.9 pg 27.0 - 34.0 [facility] Erythrocyte mean corpuscular hemoglobin concentration [Mass/volume] by Automated count 33.8 g/dL 31.0 - 36.0 [facility] Erythrocyte distribution width [Ratio] by Automated count 12.4 % 11.5 - 14.5 [facility] Platelets [#/volume] in Blood by Automated count 255 10^3/uL 150 - 45 0 [facility] Platelet mean volume [Entitic volume] in Blood by Automated count 9.9 fL 7.4 - 10.4 [facility] Neutrophils/100 leukocytes in Blood by Automated count 68.0 % 37. 0 - 80.0 [facility] Lymphocytes/100 leukocytes in Blood by Manual count 22.0 % 25.0 - 40.0 L [facility] Monocytes/100 leukocytes in Blood by Automated count 7.2 % 3.0 - 8.0 [facility] Eosinophils/100 leukocytes in Blood by Automated count 1.8 % 0.0 - 7.0 [facility] Basophils/100 leukocytes in Blood by Automated count 0.7 % 0.0 - 2.5 [facility] %IG 0.3 % 0.0 - 0.0 [facility] %NRBC 0.0 % 0.0 - 0.0 [facility] al Neutrophils [#/volume] in Blood by Automated count 5.04 10^3/uL 2.00 - 6.90 [facility] Lymphocytes [#/volume] in Blood by Automated count 1.63 10^3/uL 0.60 - 3.40 [facility] Monocytes [#/volume] in Blood by Automated count 0.53 10^3/uL 0.00 - 0.90 [facility] Eosinophils [#/volume] in Blood by Automated count 0.13 10^3/uL 0.00 - 0.70 [facility] Basophils [#/volume] in Blood by Automated count 0.05 10^3/uL 0.00 - 0.20 [facility] #IG 0.02 10^3/uL 0.00 - 0.10 [facility] H ospital #NRBC 0.00 10^3/uL 0.00 - 0.00 [facility] ospital MANUAL DIFF NOT INDICATED [facility] RBC MORPH NOT INDICATED [facility] spital ID Date Data Source [id number] 10/24/2020 11:27:00 AM EDT [facility] Name Value Range Interpretation Code Description Data Jenn rce(s) Supporting Document(s) COMPREHENSIVE METABOLIC PANEL [facility] COMPREHENSIVE METABOLIC PANEL Sodium [Moles/volume] in Serum or Plasma 135 mEq/L 134 - 153 [facility] Potassium [Moles/volume] in Serum or Plasma 3.6 mEq/L 3.6 - 5.0 [facility] Chloride [Moles/volume] in Serum or Plasma 102 mEq/L 98 - 107 [facility] Carbon dioxide, total [Moles/volume] in Serum or Plasma 25 MEQ/L 22 - 30 [facility] Glucose [Mass/volume] in Serum or Plasma 170 MG/DL 70 - 99 H [facility] BUN 15 MG/DL 7 - 21 [facility] Creatinine [Mass/volume] in Serum or Plasma 0.6 MG/DL 0.7 - 1.5 L [facility] BUN/CREAT 25 8 - 27 [facility] Protein [Mass/volume] in Serum or Plasma 6.9 G/DL 6.3 - 8.2 [facility] Albumin [Mass/volume] in Serum or Plasma 4.0 G/DL 3.9 - 5.0 [facility] Globulin [Mass/volume] in Serum by calculation 2.9 GM/DL 2.4 - 3.2 [facility] A/G RATIO 1.4 0.8 - 2.0 [facility] Calcium [Mass/volume] in Serum or Plasma 9.4 MG/DL 8.4 - 10.2 [facility] Bilirubin.total [Mass/volume] in Serum or Plasma <0.7 MG/DL 0.2 - 1.3 [facility] Alkaline phosphatase [Enzymatic activity/volume] in Serum or Plasma 94 U/L 38 - 126 [facility] Aspartate aminotransferase [Enzymatic activity/volume] in Serum or Plasma 15 U/L 5 - 40 [facility] Alanine aminotransferase [Enzymatic activity/volume] in Seru m or Plasma 23 U/L 7 - 56 [facility] Anion gap 3 in Serum or Plasma 8.0 mmol/L 8.0 - 16.0 [facility] AGE 55 yrs [facility] al NON-AA GFR >60 mL/min [facility] ital AFR AMER GFR >60 mL/min [facility] Ho spital Male GFR In terprentation 20-49 [...] >32 mL/min Normal ID Date Data Source [id number] 10/24/2020 11:04:00 AM EDT [facility] Name Value Range Interpretation Code Description Data Jenn rce(s) Supporting Document(s) Lactate [Moles/volume] in Serum or Plasma 1.8 MMOL/L 0.2 - 2.2 [facility] ID Date Data Source [id number] 10/24/2020 10:30:00 AM EDT [facility] ([facility] Name Value Range Interpretation Code Description Data Jenn rce(s) Supporting Document(s) Urinalysis Laboratory test result ME DENT ([facility] SOURCE: Clean Catch Source Laboratory test result MEDENT ([facility] SOURCE: Clean Catch Color Laboratory test result MEDENT ([facility] SOURCE: Clean Catch Clarity Laboratory test result MEDENT ([facility] SOURCE: Clean Catch Spec [place] 1.015 1.001-1.030 MEDENT ([facility] SOURCE: Clean Catch pH 6 5-9 MEDENT ([facility] SOURCE: Clean Catch Glucose Laboratory test result MEDENT ([facility] SOURCE: Clean Catch Ketone Laboratory test result MEDENT ([facility] SOURCE: Clean Catch Bilirubin Laboratory test result ME DENT ([facility] SOURCE: Clean Catch Nitrite Laboratory test result MEDENT ([facility] SOURCE: Clean Catch Protein 15 MEDENT ([facility] SOURCE: Clean Catch Blood 50 Abnormal (applies to non-numeric res ults) MEDENT ([facility] SOURCE: Clean Catch Urobilinogen Laboratory test result MEDENT ([facility] SOURCE: Clean Catch Leuk Est Laboratory test result MEDENT ([facility] SOURCE: Clean Catch Microscopic Laboratory test result M EDENT ([facility] SOURCE: Clean Catch RBC Laboratory test result MEDENT ([facility] SOURCE: Clean Catch WBC Laboratory test result MEDENT ([facility] SOURCE: Clean Catch Bacteria Laboratory test result MEDENT ([facility] SOURCE: Clean Catch Epithelial Laboratory test result Abnormal (applies to non -numeric results) MEDENT ([facility] SOURCE: Clean Catch Amorph Sed Laboratory test result ME DENT ([facility] SOURCE: Clean Catch ID Date Data Source [id number] 10/24/2020 10:54:00 AM EDT [facility] Name Value Range Interpretation Code Description Data Jenn rce(s) Supporting Document(s) UR[facility]ALYSIS [facility] URINALYS[facility] SOURCE R [facility] COLOR yellow NORMAL: Yellow [facility] CLARITY clear NORMAL: Clear [facility] Ho spital Specific gravity of Urine by Test strip 1.015 1.001 - 1.030 [facility] pH 6 5 - 9 [facility] Glucose [Mass/volume] in Urine by Test strip NORM NORMAL: Negat [facility] Bilirubin.total [Presence] in Urine by Test strip NEG NORMAL: Negative [facility] Ketones [Presence] in Urine by Test strip NEG NORMAL: Negative [facility] Protein [Mass/volume] in Urine by Test strip 15 NORMAL: Negat [facility] Nitrite [Presence] in Urine by Test strip NEG NORMAL: Negative [facility] BLOOD 50 NORMAL: Negative [facility] Leukocyte esterase [Presence] in Urine by Test strip NEG DYLAN L: Negative [facility] Urobilinogen [Mass/volume] in Urine by Test strip NOR less batool n 1.0 mg/dL [facility] MICROSCOPIC See Below [facility] ital WBC 0 - 1 NORMAL: NONE SEEN [facility] Erythrocytes [#/volume] in Urine by Test strip 0 - 1 NORMAL: NON E SEEN [facility] EPITHELIAL MODERATE NORMAL: NONE SEEN [facility] Bacteria [Presence] in Urine sediment by Light microscopy Tr shannan NORMAL: NONE SEEN [facility] Amorphous sediment [Presence] in Urine sediment by Light alf roscopy RARE NORMAL: NONE SEEN [facility] ID Date Data Source [id number] 07/29/2020 01:45:00 PM EST MEDENT ([facility] Name Value Range Interpretation Code Description Data Jenn rce(s) Supporting Document(s) Laboratory test finding (navigational concept) Laboratory test result MEDENT ([facility] Test: COVID-19 Nasal/Naspharynx Result: POSITIVE for 2019-nCoV Reference Units: Not detected NOTE: The COVID-19 assay is under Emergency Use Authorization(EUA) by the U.S. Food and Drug Administration. [facility] is designated as a high complexity laboratory by the Clinical Laboratory Improvement Amendments of 1988(CLIA) and is qualified to perform this test. ASSAY INFORMATION: Real Time RT-PCR ID Date Data Source [id number] 07/29/2020 12:00:00 AM EST [facility] Name Value Range Interpretation Code Description Data Jenn rce(s) Supporting Document(s) SARS-CoV-2 (COVID-19) RNA [Presence] in Respiratory specimen by BLESSING with probe detection Positive for 2019-nCoV [facility] This lab was ordered by [facility] and reported by [employer] ID Date Data Source [id number] 06/07/2020 03:04:00 PM EST MEDENT ([facility] [...] sensitive enteropathy. Performed at: RN - [facility] [address] [id number] Software Engineering Specialist: Kenna Hancock MD, Phone: [phone] ID Date Data Source [id number] 06/07/2020 03:04:00 PM EST [facility] ([facility] Name Value Range Interpretation Code Description Data Jenn rce(s) Supporting Document(s) Thyroid Stimulating Hormone 3.480 uIU/ML 0.358-3.740 Norm al (applies to non- numeric results) [facility] ([facility] Free T4 1.22 ng/dL 0.76-1.46 Normal (applies to non-numeric resul ts) [facility] ([facility] ID Date Data Source [id number] 06/07/2020 03:04:00 PM EST [facility] ([facility] Name Value Range Interpretation Code Description Data Jenn rce(s) Supporting Document(s) IgA [Mass/volume] in Serum or Plasma 152.0 mg/dL 70-400 Normal (applies to non- numeric results) [facility] ID Date Data Source [id number] 06/07/2020 03:04:00 PM [facility] ([facility]) Name Value Range Interpretation Code Description Data Jenn rce(s) Supporting Document(s) Thyroid Stimulating Hormone 3.480 uIU/ML 0.358-3.740 Norm al (applies to non- numeric results) [facility] ([facility]) Free T4 1.22 ng/dL 0.76-1.46 Normal (applies to non-numeric resul ts) [facility]) ID Date Data Source [id number] 06/07/2020 03:04:00 PM [facility] ([facility]) Name Value Range Interpretation Code Description Data Jenn rce(s) Supporting Document(s) Tissue transglutaminase IgA Ab [Units/volume] in Serum Labor atory test result 0-3 Normal (applies to non-numeric results) [facility]) Negative 0 - 3 Weak Positive 4 - 10 Positive >10 . Tissue Transglutaminase (tTG) has been identified as the endomysial antigen. Studies have demonstr- ated that endomysial IgA antibodies have over 99% specificity for gluten sensitive enteropathy. Performed at: RN - [facility] [address] [id number] Software Engineering Specialist: Kenna Hancock MD, Phone: [phone] IgA [Mass/volume] in Serum or Plasma 152.0 mg/dL 70-400 Normal (applies to non- numeric results) [facility]) ID Date Data Source [id number] 03/26/2020 02:45:00 PM EDT [facility] ([facility] Name Value Range Interpretation Code Description Data Jenn rce(s) Supporting Document(s) Erythrocyte sedimentation rate by Westergren method 23 mm/hr 0-40 [facility] ([facility] ID Date Data Source [id number] 03/26/2020 02:45:00 PM EDT MEDENT ([facility] Name Value Range Interpretation Code Description Data Jenn rce(s) Supporting Document(s) Leukocytes [#/volume] in Blood by Automated count 6.3 x10E3/uL 3.4-10 .8 MEDENT ([facility] Hemoglobin [Mass/volume] in Blood 14.2 g/dL 11.1-15.9 MED[facility] ([facility] Erythrocytes [#/volume] in Blood by Automated count 4.80 x10E6/uL 3.7 7-5.28 MED[facility] ([facility] Erythrocyte mean corpuscular volume [Entitic volume] by Auto mated count 88 fL 79-97 [facility] ([facility] Hematocrit [Volume Fraction] of Blood by Automated count 42.2 % 3 4.0-46.6 MED[facility] ([facility] Erythrocyte mean corpuscular hemoglobin [Entitic mass] by Automated count 29.6 pg 26.6-33.0 MEDENT ([facility] Erythrocyte mean corpuscular hemoglobin concentration [Mass/volume] by Automated count 33.6 g/dL 31.5-35.7 MED[facility] ([facility] Erythrocyte distribution width [Ratio] by Automated count 12.7 % 11.7-15.4 [facility] ([facility] Platelets [#/volume] in Blood by Automated count 291 x10E3/uL 150-450 MED[facility] ([facility] Neutrophils 57 % [facility] ([facility] Lymphs 28 % [facility] Eosinophils/100 leukocytes in Blood by Automated count 3 % MED[facility] ([facility] Monocytes/100 leukocytes in Blood by Automated count 11 % MED[facility] ([facility] Immature cells [#/volume] in Blood Laboratory test result MEDENT ([facility] Neutrophils [#/volume] in Blood by Automated count 3.5 x10E3/uL 1.4-7 .0 MED[facility] ([facility] Basophils/100 leukocytes in Blood by Automated count 1 % MED[facility] ([facility] Monocytes [#/volume] in Blood 0.7 x10E3/uL 0.1-0.9 MED[facility] ([facility] Lymphocytes [#/volume] in Blood 1.8 x10E3/uL 0.7-3.1 MED[facility] ([facility] Basophils [#/volume] in Blood by Automated count 0.1 x10E3/uL 0.0-0.2 MED[facility] ([facility] Eosinophils [#/volume] in Blood by Automated count 0.2 x10E3/uL 0.0-0 .4 MED[facility] ([facility] Immature granulocytes [#/volume] in Blood by Automated count 0.0 x10E3/uL 0.0-0.1 [facility] Immature granulocytes/100 leukocytes in Blood by Automated count 0 % MEDENT ([facility] Nucleated erythrocytes/100 leukocytes [Ratio] in Blood by Automated count Laboratory test result MEDENT (On license of [facility] Morphology [Interpretation] in Blood Narrative Laboratory test result MEDENT ([facility] Procedure Social History No Information Vital Signs ID Date Data Source UNK Name Value Range Interpretation Code Description Data Source(s) Systolic blood pressure 128 mm[Hg] 128 mm[Hg] M EDENT ([facility] Body temperature 98.0 [degF] 98.0 [degF] MED[facility] ([facility] Heart rate 76 /min 76 /min [facility] ([facility] Respiratory rate 16 /min 16 /min [facility] ( [facility] Body height 62 [in_i] 62 [in_i] MEDENT ([facility] 5'2" Body weight 218.00 [lb_av] 218.00 [lb_av] MEDEN T ([facility] [place] body weight 110 [lb_av] 110 [lb_av] MEDEN T ([facility] Body mass index (BMI) [Ratio] 39.9 kg/m2 39.9 k g/m2 [facility] ([facility] Oxygen saturation in Arterial blood by Pulse oximetry 97 % 97 % [facility] ([facility] Diastolic blood pressure 84 mm[Hg] 84 mm[Hg] [facility] ([facility] Body temperature 97.1 [degF] 97.1 [degF] MEDENT ([facility]) Body height 61.5 [in_i] 61.5 [in_i] MEDENT ([facility]) 5'1.50" Body weight 215.12 [lb_av] 215.12 [lb_av] MEDEN T ([facility]) Body mass index (BMI) [Ratio] 40.0 kg/m2 40.0 k g/m2 MEDENT ([facility]) Body mass index (BMI) [...] /min [facility] ( [facility] Systolic blood pressure 114 mm[Hg] 114 mm[Hg] M EDENT ([facility] Diastolic blood pressure 84 mm[Hg] 84 mm[Hg] [facility] ([facility] Body height 62 [in_i] 62 [in_i] [facility] ([facility] 5'2" Body weight 219.00 [lb_av] 219.00 [lb_av] MEDEN T ([facility] [place] body weight 110 [lb_av] 110 [lb_av] MEDEN T ([facility] Body temperature 97.1 [degF] 97.1 [degF] MEDENT ([facility] Body height 62.5 [in_i] 62.5 [in_i] MEDENT ([facility] 5'2.50" Body weight 216.50 [lb_av] 216.50 [lb_av] MEDEN T ([facility] ) Body mass index (BMI) [Ratio] 39.0 kg/m2 39.0 k g/m2 MEDENT ([facility] ) Body temperature 96.2 [degF] 96.2 [degF] MEDENT ([facility] Body height 63 [in_i] 63 [in_i] MEDENT ([facility] 5'3" Body weight 210.00 [lb_av] 210.00 [lb_av] MEDEN T ([facility] ) Body mass index (BMI) [Ratio] 37.2 kg/m2 37.2 k g/m2 MEDENT ([facility] ) [place] body weight 115 [lb_av] 115 [lb_av] MEDEN T ([facility], ) Systolic blood pressure 138 mm[Hg] 138 mm[Hg] EDENT ([facility], ) Diastolic blood pressure 82 mm[Hg] 82 mm[Hg] MEDENT ([facility], ) Body height 63 [in_i] 63 [in_i] MEDENT ([facility], ) 5'3" Body weight 212.00 [lb_av] 212.00 [lb_av] MEDEN T ([facility], ) Body mass index (BMI) [Ratio] 37.6 kg/m2 37.6 k g/m2 [facility], ) Body weight 96.163 kg 96.163 kg [facility] ([facility], ) Body surface area Derived from formula 1.98 m2 1.98 m2 [facility], ) Systolic blood pressure 106 mm[Hg] 106 mm[Hg] M RACHAEL ([facility] Diastolic blood pressure 68 mm[Hg] 68 mm[Hg] CINTHIA ([facility] Body temperature 98.5 [degF] 98.5 [degF] MEDMARIO ([facility] Heart rate 82 /min 82 /min CINTHIA ([facility] Respiratory rate 16 /min 16 /min CINTHIA ( [facility] Body height 62 [in_i] 62 [in_i] CINTHIA ([facility] 5'2" Body weight 209.00 [lb_av] 209.00 [lb_av] MEDEN T ([facility] [place] body weight 110 [lb_av] 110 [lb_av] MEDEN T ([facility] Body mass index (BMI) [Ratio] 38.2 kg/m2 38.2 k g/m2 CINTHIA ([facility] Oxygen saturation in Arterial blood by Pulse oximetry 97 % 97 % CINTHIA ([facility]
[2021-05-08 05:15] VITALS: BP 154/73
--- NOTE | 2021-05-08 05:56 | REPVR ---
PROCEDURE INFORMATION: Exam: XR Chest Exam date and time: 05/08/2021 3:30 AM Age: 55 years old Clinical indication: Other: Chest pain TECHNIQUE: Imaging protocol: XR of the chest. Views: 1 view. COMPARISON: CT ABD PELVIS W/O CONTRAST 09/13/2018 9:12 AM FINDINGS: Lungs: Lungs are well aerated. No consolidation. Pleural spaces: No significant pleural effusions. No pneumothorax. Heart/Mediastinum: Unremarkable. No cardiomegaly. Bones/joints: Unremarkable. IMPRESSION: No acute abnormalities are identified. Electronically signed by: Jeremiah Dorsey On 05/08/2021 05:55:24 AM
[2021-05-08] MEDS ORDERED: HEPARIN DRIP 25,000 UNITS in IV 1 EA IV SCH (07:00)
[2021-05-08] MEDS ORDERED: HEPARIN SOD (PORCINE) 5000UNITS/ML 1ML VIAL/SYRINGE IV ONE (07:00)
[2021-05-08] MEDS ORDERED: CLOPIDOGREL 300 MG TAB (PLAVIX) PO ONE (07:00)
[2021-05-08 08:35] LABS: INR 1.09; PROTHROMBIN TIME 14.6 SECONDS (12.7-14.5)
[2021-05-08 08:59] LABS: RSV AMPLIFICATION NEGATIVE (NEGATIVE)
[2021-05-08 09:10] VITALS: BP 128/71
[2021-05-08 09:38] LABS: PARTIAL THROMBOPLASTIN TIME 231.9 SECONDS (25.9-37.0)
--- NOTE | 2021-05-08 20:18 | ECGEPIP ---
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
--- NOTE | 2021-05-08 20:19 | ECGEPIP ---
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
== END 2021-05-08 09:13 | disposition short-term general hospital (02) ==
LOC: M ED 03:01
DX: I21.4 Non-ST elevation (NSTEMI) myocardial infarction (principal); I10 Essential (primary) hypertension; Z79.899 Other long term (current) drug therapy; Z88.8 Allergy status to other drugs, medicaments and biological substances; Z91.041 Radiographic dye allergy status; F17.210 Nicotine dependence, cigarettes, uncomplicated
CPT/HCPCS: 71045; 80048; 85025; 85610; 85730; 87631; 93005; 93041; 94760; 96365; 96366; 96375; 99285; J1644; J2405

== ENCOUNTER 2021-12-09 14:18 | Emergency (ER) | payer OTHER ==
[~2021-12-09] VITALS: Ht 157.5 cm; Wt 103.1 kg
[2021-12-09] MEDS ORDERED: LEVO150T7 PO (14:35)
[2021-12-09] MEDS ORDERED: CLOP75TA2 PO (14:35)
[2021-12-09] MEDS ORDERED: LISI20TA33 PO (14:35)
[2021-12-09] MEDS ORDERED: HYDR12.55 PO (14:35)
[2021-12-09] MEDS ORDERED: METO1TAB32 PO (14:35)
[2021-12-09] MEDS ORDERED: ASPI-226 PO (14:35)
[2021-12-09] MEDS ORDERED: ATOR40TA75 PO (14:35)
[2021-12-09 15:19] LABS: BASO % 0.7 % (0.0-1.0); EOS # 0.1 10^3/uL (0.0-0.5); EOS % 1.5 % (0.0-3.0); HEMATOCRIT 39.2 % (36.0-47.0); HEMOGLOBIN 12.6 g/dl (12.0-15.5); LYMPH % 31.7 % (24.0-44.0); MEAN CORPUSCULAR HGB CONC 32.1 g/dl (32.0-36.5); MEAN CORPUSCULAR VOLUME 90.3 fl (80.0-96.0); MONO # 0.6 10^3/uL (0.0-0.8); MONO % 9.9 % (2.0-8.0); NEUTROPHILS # 3.5 10^3/uL (1.5-8.5); PLATELET COUNT, AUTOMATED 261 10^3/uL (150-450); RED BLOOD COUNT 4.34 10^6/uL (4.00-5.40); WHITE BLOOD COUNT 6.2 10^3/uL (4.0-10.0)
[2021-12-09] MEDS ORDERED: ISOVUE-370 76% 100ML VIAL As Ordered ONE (15:23)
[2021-12-09 15:51] LABS: CK-MB VALUE MASS 3.1 NG/ML (<3.6); MB/CK RELATIVE INDEX 1.23 (< OR =4)
[2021-12-09 15:57] LABS: ALBUMIN 3.6 GM/DL (3.2-5.2); BILIRUBIN,DIRECT 0.1 MG/DL (0.0-0.2); BILIRUBIN,TOTAL 0.4 MG/DL (0.2-1.0); FREE T4 1.26 NG/DL (0.76-1.46); THYROID STIMULATING HORMONE 1.38 uIU/ML (0.358-3.740)
[2021-12-09 16:54] LABS: CK-MB VALUE MASS 2.5 NG/ML (<3.6); MB/CK RELATIVE INDEX 1.1 (< OR =4)
[2021-12-09 17:51] VITALS: BP 132/60
[2021-12-09 18:14] LABS: RSV AMPLIFICATION NEGATIVE (NEGATIVE)
== END 2021-12-09 17:53 | disposition home or self-care (01) ==
LOC: M ED 14:18
DX: R07.9 Chest pain, unspecified (principal); R94.31 Abnormal electrocardiogram [ECG] [EKG]; I25.2 Old myocardial infarction; I10 Essential (primary) hypertension; E78.5 Hyperlipidemia, unspecified; E11.9 Type 2 diabetes mellitus without complications; Z79.84 Long term (current) use of oral hypoglycemic drugs; Z95.5 Presence of coronary angioplasty implant and graft; F17.200 Nicotine dependence, unspecified, uncomplicated; F10.10 Alcohol abuse, uncomplicated; Z87.442 Personal history of urinary calculi; Z88.1 Allergy status to other antibiotic agents; Z91.041 Radiographic dye allergy status; Z79.811 Long term (current) use of aromatase inhibitors; Z79.899 Other long term (current) drug therapy
CPT/HCPCS: 36415; 71045; 71275; 80047; 80076; 82550; 82553; 83690; 83880; 84439; 84443; 85025; 87631; 93005; 93041; 94760; 99285; Q9967

== ENCOUNTER → 2023-01-26 | Outpatient (REF) ==
[~2023-01-26] MED LIST changes: +ASPI-226 PO; +ATOR40TA75 PO; +CLOP75TA2 PO; +HYDR12.55 PO; +LEVO150T7 PO; +LISI20TA33 PO; +METO1TAB32 PO
== END ==
LOC: M LAB 10:27
PROVIDERS: ATTEND Nurse Practitioner Adult Health
DX: Z02.1 Encounter for pre-employment examination (principal)

== ENCOUNTER → 2023-07-15 | Outpatient (REF) | LOC: M EMP 11:07 | PROVIDERS: ATTEND Family Medicine | DX: Z11.52 Encounter for screening for COVID-19 (principal) ==

== ENCOUNTER 2024-03-31 11:14 | Emergency (ER) | payer OTHER ==
[~2024-03-31] VITALS: Ht 157.5 cm; Wt 101.4 kg
[~2024-03-31 11:14] MED LIST changes: +ONDA-282 PO; -ONDA4TAB6 PO
[2024-03-31] MEDS: ASPIRIN 81MG CHEW TABLET PO ONE (12:55)
[2024-03-31] MEDS: NS 1,000 ML IV SCH (12:57)
[2024-03-31 13:30] LABS: LIPASE 37 U/L (12-53)
[2024-03-31 13:33] LABS: ALBUMIN 3.9 G/DL (3.2-5.2); ALKALINE PHOSPHATASE 98 U/L (46-116); ALT/SGPT 38 U/L (7.0-40); AST/SGOT 33 U/L (<34); BILIRUBIN,DIRECT 0.2 MG/DL (<0.4); BILIRUBIN,TOTAL 0.6 MG/DL (0.3-1.2); BLOOD UREA NITROGEN 13 MG/DL (9-23); CALCIUM LEVEL 9.3 MG/DL (8.5-10.1); CARBON DIOXIDE LEVEL 28 MMOL/L (20-31); CHLORIDE LEVEL 103 MMOL/L (98-107); CREATININE FOR GFR 0.67 MG/DL (0.55-1.30); GLOMERULAR FILTRATION RATE > 60.0 (>51); GLUCOSE, FASTING 87 MG/DL (60-100); MAGNESIUM LEVEL 1.9 MG/DL (1.8-2.4); SODIUM LEVEL 137 MMOL/L (136-145)
[2024-03-31 13:34] LABS: FREE T4 1.81 NG/DL (0.89-1.76)
[2024-03-31 13:35] LABS: CPK CREATINE PHOSPHOKINASE 194 U/L (34-145); MB/CK RELATIVE INDEX 0.51 (< OR =4)
[2024-03-31 13:41] LABS: BASO # 0.1 10^3/uL (0.0-0.2); BASO % 0.7 % (0.0-1.0); EOS # 0.1 10^3/uL (0.0-0.5); EOS % 1.6 % (0.0-3.0); HEMOGLOBIN 13.5 g/dl (12.0-15.5); LYMPH # 2.2 10^3/uL (1.5-5.0); LYMPH % 30.5 % (24.0-44.0); MEAN CORPUSCULAR HEMOGLOBIN 29.7 pg (27.0-33.0); MEAN CORPUSCULAR HGB CONC 33.8 g/dl (32.0-36.5); MEAN CORPUSCULAR VOLUME 88.1 fl (80.0-96.0); MONO # 0.6 10^3/uL (0.0-0.8); MONO % 8.2 % (2.0-8.0); NEUTROPHILS # 4.3 10^3/uL (1.5-8.5); NEUTROPHILS % 58.7 % (36.0-66.0); PLATELET COUNT, AUTOMATED 219 10^3/uL (150-450); RED BLOOD COUNT 4.54 10^6/uL (4.00-5.40); WHITE BLOOD COUNT 7.3 10^3/uL (4.0-10.0)
[2024-03-31 14:33] LABS: CHOLESTEROL RISK RATIO 3.63 (<5); CK-MB VALUE MASS < 1.0 NG/ML (<3.6); HDL CHOLESTEROL 34.9 MG/DL (>40); LDL CHOLESTEROL 62.9 MG/DL (<100); NON-HDL-C 92.1 MG/DL
[2024-03-31 14:37] LABS: CPK CREATINE PHOSPHOKINASE 159 U/L (34-145); MB/CK RELATIVE INDEX 0.62 (< OR =4)
[2024-03-31] MEDS ORDERED: ISOVUE-370 76% 100ML VIAL As Ordered ONE (15:07)
[2024-03-31] MEDS: ACETAMINOPHEN 325 MG TAB PO ONE (15:45)
[2024-03-31] MEDS ORDERED: ROSU40TA81 PO (16:04)
[2024-03-31] MEDS ORDERED: EZET10TA21 PO (16:04)
[2024-03-31 17:17] VITALS: BP 136/81; TEMP 96.8; O2SAT 98
== END 2024-03-31 17:30 | disposition left against medical advice (07) ==
LOC: M ED 11:14
DX: R42 Dizziness and giddiness (principal); R00.1 Bradycardia, unspecified; I44.4 Left anterior fascicular block; I25.2 Old myocardial infarction; I10 Essential (primary) hypertension; E78.5 Hyperlipidemia, unspecified; F17.200 Nicotine dependence, unspecified, uncomplicated; Z88.1 Allergy status to other antibiotic agents; Z79.82 Long term (current) use of aspirin; Z79.811 Long term (current) use of aromatase inhibitors; Z79.899 Other long term (current) drug therapy; Z53.9 Procedure and treatment not carried out, unspecified reason
CPT/HCPCS: 36415; 70450; 70496; 70498; 71045; 80048; 80061; 80076; 82550; 82553; 83690; 83735; 83880; 84439; 84443; 84484; 85025; 93005; 93041; 94760; 99285; Q9967

== ENCOUNTER 2024-10-17 10:41 | Emergency (ER) | payer OTHER ==
[~2024-10-17] VITALS: Ht 157.5 cm; Wt 105.6 kg
[~2024-10-17 10:41] MED LIST changes: +EZET10TA21 PO; +ROSU40TA81 PO
[2024-10-17 12:38] LABS: BASO % 0.6 % (0.0-1.0); EOS # 0.1 10^3/uL (0.0-0.5); HEMATOCRIT 43.3 % (36.0-47.0); HEMOGLOBIN 14.5 g/dl (12.0-15.5); LYMPH # 1.9 10^3/uL (1.5-5.0); LYMPH % 29.3 % (24.0-44.0); MEAN CORPUSCULAR HEMOGLOBIN 29.2 pg (27.0-33.0); MEAN CORPUSCULAR HGB CONC 33.5 g/dl (32.0-36.5); MEAN CORPUSCULAR VOLUME 87.1 fl (80.0-96.0); MONO # 0.8 10^3/uL (0.0-0.8); MONO % 11.3 % (2.0-8.0); NEUTROPHILS # 3.7 10^3/uL (1.5-8.5); NEUTROPHILS % 56.2 % (36.0-66.0); PLATELET COUNT, AUTOMATED 215 10^3/uL (150-450); RED BLOOD COUNT 4.97 10^6/uL (4.00-5.40); WHITE BLOOD COUNT 6.6 10^3/uL (4.0-10.0)
[2024-10-17 13:07] LABS: LIPASE 37 U/L (12-53)
[2024-10-17 13:10] LABS: ALKALINE PHOSPHATASE 90 U/L (35-104); ALT/SGPT 41 U/L (7.0-40); AST/SGOT 28 U/L (<34); BILIRUBIN,DIRECT 0.1 MG/DL (<0.4); BILIRUBIN,TOTAL 0.4 MG/DL (0.3-1.2); BLOOD UREA NITROGEN 14 MG/DL (9-23); CALCIUM LEVEL 9.1 MG/DL (8.3-10.6); CARBON DIOXIDE LEVEL 25 MMOL/L (20-31); CHLORIDE LEVEL 106 MMOL/L (98-107); CREATININE FOR GFR 0.62 MG/DL (0.55-1.30); GLOMERULAR FILTRATION RATE > 60.0 (>45); GLUCOSE, FASTING 112 MG/DL (74-106); POTASSIUM SERUM 4.2 MMOL/L (3.5-5.1); SODIUM LEVEL 141 MMOL/L (136-145); TOTAL PROTEIN 6.9 G/DL (5.7-8.2)
[2024-10-17 14:50] LABS: KETONE, URINE AUTO RFX NEGATIVE (NEGATIVE); LEUKOCYTE ESTERASE UR AUTO RFX NEGATIVE (NEGATIVE); NITRITE, URINE AUTO RFX NEGATIVE (NEGATIVE); RBC, URINE AUTO RFX 2 /HPF (0-3); SQUAM EPITHELIAL CELL UR AURFX 1 /HPF (0-6); WBC, URINE AUTO RFX 1 /HPF (0-3)
[2024-10-17] MEDS ORDERED: ISOVUE-370 76% 100ML VIAL As Ordered ONE (15:13)
[2024-10-17 16:37] VITALS: BP 118/66; TEMP 97; O2SAT 98
[2024-10-17] MEDS: MAGNESIUM CITRATE 300ML BTL PO ONE (16:55)
[2024-10-17] MEDS ORDERED: COLA100C5 PO (16:57)
== END 2024-10-17 17:15 | disposition home or self-care (01) ==
LOC: M ED 16:45
DX: K59.00 Constipation, unspecified (principal); N20.0 Calculus of kidney; N28.1 Cyst of kidney, acquired; K76.0 Fatty (change of) liver, not elsewhere classified; I25.2 Old myocardial infarction; E11.9 Type 2 diabetes mellitus without complications; I10 Essential (primary) hypertension; K57.30 Diverticulosis of large intestine without perforation or abscess without bleeding; E03.9 Hypothyroidism, unspecified; Z90.89 Acquired absence of other organs; Z87.442 Personal history of urinary calculi; Z88.1 Allergy status to other antibiotic agents; Z79.82 Long term (current) use of aspirin; Z79.899 Other long term (current) drug therapy
CPT/HCPCS: 36415; 74018; 74177; 80048; 80076; 81001; 83690; 85025; 99284; Q9967

== ENCOUNTER → 2024-11-23 | Outpatient (CLI) | payer OTHER ==
[~2024-11-23] MED LIST changes: +COLA100C5 PO; +GASTROGRAFIN SOLUTION 30ML As Ordered ONE
== END ==
LOC: M RAD 13:30
PROVIDERS: ATTEND Surgery
DX: K57.90 Diverticulosis of intestine, part unspecified, without perforation or abscess without bleeding (principal)
CPT/HCPCS: 74176; Q9963

== ENCOUNTER → 2025-02-22 | Outpatient (CLI) | payer OTHER ==
[~2025-02-22] MED LIST changes: -GASTROGRAFIN SOLUTION 30ML As Ordered ONE; +ISOVUE-370 76% 100 ML VIAL As Ordered ONE; +PROZ10CA11 PO; -PROZ10CA7 PO
== END ==
LOC: M RAD 11:13
PROVIDERS: ATTEND Nurse Practitioner Family
DX: K57.32 Diverticulitis of large intestine without perforation or abscess without bleeding (principal); G89.18 Other acute postprocedural pain
CPT/HCPCS: 74177; 82565; Q9967

== ENCOUNTER → 2025-06-22 | Outpatient (CLI) | payer OTHER ==
[~2025-06-22] MED LIST changes: -EZET10TA21 PO; +EZET10TA57 PO; -IBUP-1022 PO; +IBUP600T42 PO; -ISOVUE-370 76% 100 ML VIAL As Ordered ONE
[2025-06-22 07:19] LABS: PLATELET COUNT, AUTOMATED 226 10^3/uL (150-450)
[2025-06-22 07:42] LABS: ALT/SGPT 39 U/L (7.0-40); AST/SGOT 26 U/L (<34); CALCIUM LEVEL 9.2 MG/DL (8.3-10.6); CARBON DIOXIDE LEVEL 29 MMOL/L (20-31); CHLORIDE LEVEL 106 MMOL/L (98-107); CHOLESTEROL LEVEL 122 MG/DL (<200); CHOLESTEROL RISK RATIO 2.83 (<5); CREATININE FOR GFR 0.67 MG/DL (0.55-1.30); GLOMERULAR FILTRATION RATE > 90.0 (>45); LDL CHOLESTEROL 52.2 MG/DL (<100); NON-HDL-C 79.0 MG/DL; PHOSPHORUS LEVEL 4.1 MG/DL (2.4-5.1); POTASSIUM SERUM 4.4 MMOL/L (3.5-5.1); SODIUM LEVEL 141 MMOL/L (136-145); TRIGLYCERIDES LEVEL 134 MG/DL (<150)
[2025-06-22 07:50] LABS: ESTIMATED AVERAGE GLUCOSE 140.0 MG/DL (60-110)
[2025-06-22 13:20] LABS: TOTAL T3 127.8 NG/DL (60.0-181.0)
[2025-06-22 13:21] LABS: T UPTAKE 39.4 % (22.5-37.0)
[2025-06-22 13:37] LABS: THYROXINE (T4) 10.9 UG/DL (4.5-10.9)
== END ==
LOC: M RAD 06:25
PROVIDERS: ATTEND Physician Assistant
DX: M25.512 Pain in left shoulder (principal); E11.9 Type 2 diabetes mellitus without complications; E78.2 Mixed hyperlipidemia; E83.30 Disorder of phosphorus metabolism, unspecified; I10 Essential (primary) hypertension; E03.9 Hypothyroidism, unspecified; M19.012 Primary osteoarthritis, left shoulder